=== PATIENT | male | born 1945 | race Caucasian/White ===

== ENCOUNTER 2020-02-01 09:30 | Outpatient (RCR) | payer MEDICARE, SELFPAY ==
[2019-11-08 10:48] VITALS: PULSE 52
[2019-11-08 11:31] VITALS: BP 148/82; PULSE 52; RESP 14; TEMP 37.2; O2SAT 97
--- NOTE | 2019-12-28 09:49 | PCCPR ---
Absent-not sleeping well due to tooth pain. Is hoping to get into the dentist today or get started on some antibiotics. Will keep us posted if he'll be here tomorrow.
--- NOTE | 2020-01-02 08:13 | PCCPR ---
Lai absent this week due to Shingles.
== END 2020-02-01 10:54 | disposition home or self-care (01) ==
LOC: ANHCPREHAB 09:30
PROVIDERS: PCP Family Medicine; Visit Provider Specialist
DX: Z95.1 Presence of aortocoronary bypass graft (principal)
CPT/HCPCS: 93798

== ENCOUNTER 2022-01-01 17:18 | Emergency (ER) | payer MEDICARE, SELFPAY ==
--- NOTE | 2022-01-01 17:22 | ED.SKABFB ---
HPI - Skin/Abscess/Foreign Bdy General Chief complaint: Skin/Abscess/Foreign Body Stated complaint: rash Time Seen by Provider: 01/01/22 17:23 Source: patient and RN notes reviewed History of Present Illness HPI narrative: Patient is a 76-year-old male who presents the urgent care with complaints of a rash to the sides of the face and forehead. Patient states that he was outside doing yard work last night and came in with itchy eyes. Patient states he was wearing gloves that he typically does yard work and is unsure if he came into contact with poison greg. Patient states that the itchy eyes improved slightly. Denies any use of [id number] medication. No other acute distress noted. Patient aware of the plan of care. Some parts of this dictation were generated by voice recognition software and may contain typographical and/or grammatical inaccuracies. Related Data Home Medications Medication Instructions Recorded Confirmed aspirin 81 mg tablet,delayed 81 mg PO DAILY 05/13/19 01/01/22 release atorvastatin 20 mg tablet 20 mg PO DAILY 05/13/19 01/01/22 fluticasone propionate 50 1 spray intranasal DAILY 05/13/19 01/01/22 mcg/actuation nasal spray,suspension (Flonase Allergy Relief) metoprolol tartrate 25 mg tablet 25 mg PO BID 10/26/19 01/01/22 lisinopril 10 mg tablet 10 mg PO DAILY 11/17/19 01/01/22 Allergies Allergy/AdvReac Type Severity Reaction Status Date / Time carbamazepine Allergy Severe Blurred Verified 12/18/21 14:21 vision naproxen AdvReac Unknown Nausea and Verified 12/18/21 14:21 Vomiting Review of Systems Review of Systems: CONSTITUTIONAL: Denies fever, chills, or sweats. EYES: Denies visual changes, redness, or discharge. ENT: Denies rhinorrhea, congestion, sore throat, or otalgia. CARDIOVASCULAR: Denies chest pain, palpitations, or edema. RESPIRATORY: Denies cough or dyspnea. GASTROINTESTINAL: Denies abdominal pain, nausea, vomiting, or diarrhea. GENITOURINARY: Denies dysuria or hematuria. SKIN: Reports of a rash to each side of the face and forehead MUSCULOSKELETAL: Denies back pain, joint pain, or myalgia. NEUROLOGIC: Denies headache, numbness, or weakness. All other systems reviewed are negative, except as documented in HPI. [facility] Past Medical History Medical History (Updated 01/01/22 @ 17:43 by BRITTNEY Joans) Anxiety Benign colon polyp CAD in [place] artery Chronic low back pain COPD (chronic obstructive pulmonary disease) PFTs in April 2017 demonstrated moderate obstructive ventilatory defect with acute bronchodilator response. COPD with asthma Coronary artery disease Cardiac catheterization in May [address] Perez, done for evaluation of abnormal stress test, should coronary artery disease with 100% chronic total occlusion of the right coronary artery with, and moderate stenosis of a diagonal as well as the distal circumflex. Treated with aggressive medical management. 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 No adjuvant therapy. Surgical History Surgical History History of ankle surgery (~1989) 1989 - Left ankle ORIF with hardware. History of coronary artery bypass graft (~05/2019) History of inguinal herniorrhaphy 1989 right inguinal hernia repair Status post appendectomy 1959 - Secondary to ruptured appendicitis. Status post radical unilateral orchiectomy 1989 Right-sided orchiectomy with radical lymph node dissection, at the age of 47 for immature teratoma. Status post surgical removal of malignant neoplasm of skin Basal c
[2022-01-01 17:27] VITALS: BP 140/80; PULSE 56; RESP 16; TEMP 36.9; O2SAT 99
== END 2022-01-01 17:56 | disposition home or self-care (01) ==
PROVIDERS: Emergency Provider Nurse Practitioner Family; PCP Family Medicine
DX: L23.7 Allergic contact dermatitis due to plants, except food (principal); I25.10 Atherosclerotic heart disease of native coronary artery without angina pectoris; J44.9 Chronic obstructive pulmonary disease, unspecified; E78.5 Hyperlipidemia, unspecified; I10 Essential (primary) hypertension; K21.9 Gastro-esophageal reflux disease without esophagitis; M19.90 Unspecified osteoarthritis, unspecified site; Z85.47 Personal history of malignant neoplasm of testis; Z85.828 Personal history of other malignant neoplasm of skin; Z90.79 Acquired absence of other genital organ(s); Z87.891 Personal history of nicotine dependence
CPT/HCPCS: 99213; G0463

== ENCOUNTER → 2022-05-20 10:33 | Outpatient (CLI) | payer MEDICARE, SELFPAY ==
--- NOTE | ~2022-05-20 | XR_ITS ---
XR lumbar spine min 4V DATE: 05/20/2022 10:55 INDICATION: Low back pain TECHNIQUE: AP, bilateral oblique, lateral and coned lateral lumbosacral views COMPARISON: 12/27/2008 lumbar spine FINDINGS: There is degenerative change at the apophyseal joints at the mid and lower lumbar and lumbo sacral area with associated grade 1 anterolisthesis at L4-5. There is moderate degenerative disc disease L4-5 and severe degenerative disc disease at L5-S1. No fracture or bone destruction, spondylolysis. The sacroiliac joints are intact. Surgical clips overlie the upper and lower abdomen. There is a very prominent amount of fecal material in the right colon. IMPRESSION: Degenerative changes Very prominent amount of fecal material in the right colon Reviewed, dictated and finalized at location L. 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
== END ==
PROVIDERS: PCP Family Medicine; Visit Provider Family Medicine
DX: G89.29 Other chronic pain (principal); M54.50 Low back pain, unspecified
CPT/HCPCS: 72110

== ENCOUNTER → 2022-06-06 09:40 | Outpatient (CLI) | payer MEDICARE, SELFPAY ==
--- NOTE | ~2022-06-06 | MR_ITS ---
MRI of the lumbar spine Clinical History: Back pain Technique: Axial T2-weighted images, and sagittal T1-weighted, T2-weighted, and T2 fat-sat images wer e acquired. Findings: No fracture identified. Minimal grade 1 anterolisthesis of L4 over L5 noted. Grade 1 retrol isthesis of L5 over S1 noted. No suspicious bone marrow signal abnormality identified. At L1-L2, there is no disc bulge or herniation. There is facet arthropathy. No spinal canal stenosis or neural foraminal narrowing. At L2-L3, there is no disc bulge or herniation. There is advanced facet arthropathy. No spinal canal stenosis or neural foraminal narrowing. At L3-L4, there is mild disc bulge and facet arthropathy, which contribute to moderate to severe thec al sac compression. Bilateral neural foramina are preserved. At L4-L5, there is a disc extrusion extending superiorly behind the L4 vertebral body. There is sever e facet arthropathy. These factors contribute to severe thecal sac compression as well as severe late ral recess stenosis bilaterally. There is mild left neural foraminal narrowing. Right neural foramen preserved. At L5-S1, disc bulge and severe facet arthropathy are present. No spinal canal stenosis. There is mil d to moderate bilateral neural foraminal narrowing. Impression: Disc extrusion at the L4-L5 level extending superiorly behind the L4 vertebral body. This can without degenerative factors, contributes to severe thecal sac compression and spinal canal stenosis at this level, with mild left neural foraminal narrowing. Multifactorial moderate to severe thecal sac compression L3-L4. Bilateral neural foraminal narrowing at L5-S1. Grade 1 retrolisthesis of L5 over S1. Minimal grade 1 anterolisthesis of L4 over L5. Reviewed, dictated and finalized at [facility]. 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 This can without degenerative factors, contributes to severe thecal sac c ompression and spinal canal stenosis at this level, with mild left neural carlos manuel inal narrowing. Multifactorial moderate to severe thecal sac compression L3-L4. Bilateral neural foraminal narrowing at L5-S1. Grade 1 retrolisthesis of L5 over S1. Minimal grade 1 anterolisthesis of L4 over L5.
== END ==
PROVIDERS: PCP Family Medicine; Visit Provider Family Medicine
DX: M51.26 Other intervertebral disc displacement, lumbar region (principal); M54.30 Sciatica, unspecified side; G95.20 Unspecified cord compression
CPT/HCPCS: 72148

== ENCOUNTER 2022-09-30 13:27 | Outpatient (CLI) | payer MEDICARE, SELFPAY ==
[2022-09-30 14:28] LABS: Potassium 4.5 mmol/L (3.4-5.0)
[2022-09-30 14:32] LABS: Alanine Aminotransferase 22 U/L (6-50); Albumin Level 4.1 g/dL (3.5-5.1); Alkaline Phosphatase 91 U/L (38-126); Anion Gap 6 mmol/L (8-16); Aspartate Amino Transferase 36 U/L (17-59); Bilirubin,Total 0.7 mg/dL (0.2-1.3); Blood Urea Nitrogen 15 mg/dL (9-20); Calcium 8.3 mg/dL (8.4-10.2); Carbon Dioxide 30 mmol/L (22-30); Chloride 101 mmol/L (98-107); Estimated Glomerular Filt Rate > 60; Glucose 89 mg/dL (65-110); Sodium 137 mmol/L (137-145)
== END 2022-09-30 13:28 | disposition home or self-care (01) ==
LOC: ANHGOSHLAB 13:27
PROVIDERS: PCP Family Medicine; Visit Provider Family Medicine
DX: I10 Essential (primary) hypertension (principal); E78.5 Hyperlipidemia, unspecified
CPT/HCPCS: 36415; 80053

== ENCOUNTER 2022-11-21 00:32 | Day surgery (SDC) | payer MEDICARE, SELFPAY ==
[2022-11-17 08:49] VITALS: BMI 28.3
--- NOTE | 2022-11-21 07:43 | WPDANESEPPF ---
Anes - Initial Pre Proc Eval Procedure: Operation Date: 11/21/22 09:30 Proposed Procedures p Colonoscopy - Amol Dugan MD Date/Time: 11/21/22 07:43 Surgeon: Amol Dugan MD Pre Op Diagnosis: hx colon polyps Patient Data Age: 76 Gender: M Height: 1.75 m Weight: 87 kg Allergies Allergy/AdvReac Type Severity Reaction Status Date / Time carbamazepine Allergy Severe Blurred Verified 11/21/22 08:41 vision naproxen AdvReac Unknown Nausea and Verified 11/21/22 08:41 Vomiting Home Medications Medication Instructions Recorded Confirmed Type aspirin 81 mg tablet,delayed 81 mg PO DAILY 05/13/19 11/17/22 History release fluticasone propionate 50 1 spray intranasal PRN PRN 05/13/19 11/17/22 History mcg/actuation nasal Allergies spray,suspension (Flonase Allergy Relief) lisinopril 10 mg tablet 10 mg PO DAILY 11/17/19 11/21/22 History sildenafil 100 mg tablet 100 mg PO DAILY PRN sexual 01/14/21 11/17/22 Rx activity #10 tabs albuterol sulfate 90 mcg/actuation 1 puff inhalation Q4H PRN SOB 04/01/22 11/17/22 History aerosol inhaler atorvastatin 20 mg tablet 20 mg PO QHS 04/01/22 11/17/22 History metoprolol tartrate 50 mg tablet 50 mg PO BID 04/01/22 11/21/22 History fluticasone furoate 100 1 inh inhalation DAILY #180 ea 04/16/22 11/17/22 Rx mcg-vilanterol 25 mcg/dose inhalation powder (Breo Ellipta) cetirizine 10 mg tablet (Zyrtec) 10 mg PO DAILY PRN Allergies 05/20/22 11/17/22 History cholecalciferol (vitamin D3) 25 25 mcg PO DAILY 05/20/22 11/17/22 History mcg (1,000 unit) capsule alprazolam 1 mg tablet 1 mg PO DAILY PRN anxiety #90 tabs 05/27/22 11/17/22 Rx pregabalin 100 mg capsule 100 mg PO BID-TID PRN shingles 07/29/22 11/17/22 Rx pain #270 caps omeprazole 20 mg capsule,delayed 20 mg PO DAILY #90 caps 09/01/22 11/17/22 Rx release tramadol 50 mg tablet 50 mg PO BID PRN pain #60 tabs 10/29/22 11/17/22 Rx melatonin 2.5 mg chewable tablet 2.5 mg PO HS PRN Sleep 11/17/22 11/17/22 History Patient hx anesthesia problems: none Family hx anesthesia problems: none Results Review: All pre-operative results and documents have been reviewed as part of the pre-operative evaluation. [facility] Past Medical History Medical History Anxiety Benign colon polyp CAD in [place] artery Chronic low back pain COPD (chronic obstructive pulmonary disease) PFTs in April 2017 demonstrated moderate obstructive ventilatory defect with acute bronchodilator response. COPD with asthma Coronary artery disease Cardiac catheterization in May [address] Perez, done for evaluation of abnormal stress test, should coronary artery disease with 100% chronic total occlusion of the right coronary artery with, and moderate stenosis of a diagonal as well as the distal circumflex. Treated with aggressive medical management. 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 No adjuvant therapy. Vitamin D deficiency Surgical History Surgical History History of ankle surgery (~1989) 1989 - Left ankle ORIF with hardware. History of basal cell carcinoma (BCC) excision (~2022) Back History of coronary artery bypass graft (~05/2019) History of inguinal herniorrhaphy (~1989) 1989 right inguinal hernia repair Status post appendectomy (~1959) 1960 - Secondary to ruptured appendicitis. Status post radical unilateral orchiectomy 1989 Right-sided orchiectomy with radical lymph node dissec
[2022-11-21 08:44] VITALS: BP 119/66; PULSE 62; RESP 20; TEMP 36.3; O2SAT 95
[2022-11-21] MEDS: LACTATED RINGERS 1,000 ML 150 ML IV CONT (08:56)
--- NOTE | 2022-11-21 09:18 | PM.HPGS ---
History of Present Illness History of Present Illness Consent: Risks, benefits, and alternatives have been discussed and questions answered. Patient agrees to proceed with procedure. Chief complaint: neoplasia screening Narrative: Milton Arreola is a 76 year old male Presents for screening colonoscopy. Patient reports his weight appetite are normal. He occasionally has bouts constipation. Colonoscopy 5 years ago revealed a diminutive polyp that was removed but no histology obtain because of fulguration. Patient has a history of testicular carcinoma. He had lymph node removal prophylactically. He reports his stools are somewhat sluggish on occasion. Patient denies any bleeding or weight loss. Family history noncontributory. Review of Systems Review of Systems: Review of systems noncontributory. [facility] Past Medical History Medical History Anxiety Benign colon polyp CAD in [place] artery Chronic low back pain COPD (chronic obstructive pulmonary disease) PFTs in April 2017 demonstrated moderate obstructive ventilatory defect with acute bronchodilator response. COPD with asthma Coronary artery disease Cardiac catheterization in May [address] Perez, done for evaluation of abnormal stress test, should coronary artery disease with 100% chronic total occlusion of the right coronary artery with, and moderate stenosis of a diagonal as well as the distal circumflex. Treated with aggressive medical management. 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 No adjuvant therapy. Vitamin D deficiency Surgical History Surgical History History of ankle surgery (~1989) 1989 - Left ankle ORIF with hardware. History of basal cell carcinoma (BCC) excision (~2022) Back History of coronary artery bypass graft (~05/2019) History of inguinal herniorrhaphy (~1989) 1989 right inguinal hernia repair Status post appendectomy (~1959) 1960 - Secondary to ruptured appendicitis. Status post radical unilateral orchiectomy 1989 Right-sided orchiectomy with radical lymph node dissection, at the age of 47 for immature teratoma. Status post surgical removal of malignant neoplasm of skin (~2019) Basal cell carcinoma excised from the nose. Family History Family History Mother Breast cancer Hypertension Father Family history of coronary artery disease Cerebrovascular accident Hypertension Social History Social History Social History: The patient lives in [place] with his . He designates his , Eryn, as his surrogate decision maker and he wishes to be a full code. The patient smoked about half a pack of cigarettes per day and quit in 2013. He denies alcohol and drug abuse. Years smoked: 30 Smoking status: Former smoker Tobacco type: cigarettes Smoking end date: 05/04/99 Alcohol intake: never Substance use: never Substance use type: does not use Lack of Transportation: No Lack of Food: Never True Current Housing: I Have Housing Concerned About Future Housing: No Difficulty Paying Gas/Electric Bills: No Difficulty Paying for Meds: No Currently Unemployed: No Education: Associate Degree Living arrangements: with family Additional living arrangements comments: Occupation/Education: occupation Additional occupation/education comments: [employer]
[2022-11-21 09:48] VITALS: BP 86/49; PULSE 70; RESP 25; O2SAT 100
[2022-11-21 09:58] VITALS: BP 103/69; PULSE 68; RESP 22; O2SAT 100
[2022-11-21 10:08] VITALS: BP 108/64; PULSE 70; RESP 22; O2SAT 100
== END 2022-11-21 10:10 | disposition home or self-care (01) ==
PROVIDERS: PCP Family Medicine; Visit Provider Internal Medicine Gastroenterology
PROC: 0DJD8ZZ Inspection of Lower Intestinal Tract, Via Natural or Artificial Opening Endoscopic (ICD-10-PCS; CPT 45378; principal; 2022-11-21 09:30)
DX: Z12.11 Encounter for screening for malignant neoplasm of colon (principal); D12.2 Benign neoplasm of ascending colon; K64.8 Other hemorrhoids; I25.10 Atherosclerotic heart disease of native coronary artery without angina pectoris; J44.9 Chronic obstructive pulmonary disease, unspecified; I10 Essential (primary) hypertension; K21.9 Gastro-esophageal reflux disease without esophagitis; E78.5 Hyperlipidemia, unspecified; F41.9 Anxiety disorder, unspecified; E55.9 Vitamin D deficiency, unspecified; Z85.47 Personal history of malignant neoplasm of testis; Z87.891 Personal history of nicotine dependence; Z79.82 Long term (current) use of aspirin; Z79.51 Long term (current) use of inhaled steroids
CPT/HCPCS: 45380; 88305; J2704; J7120

== ENCOUNTER → 2023-04-06 13:49 | Outpatient (CLI) | payer MEDICARE, SELFPAY ==
--- NOTE | ~2023-04-06 | XR_ITS ---
EXAMINATION: XR foot LT min 3V DATE: 04/06/2023 14:01 INDICATION: Left foot pain. TECHNIQUE: 4 views of left foot were obtained. COMPARISON: None. FINDINGS: There is a fracture of medial aspect of base of first proximal phalanx with 2 mm distractio n. There is a nondisplaced fracture of plantar base of second proximal phalanx. There is plate and sc rew fixation of distal fibula and screw fixation of medial malleolus. There is mild osteoarthritis of first interphalangeal joint and first metatarsophalangeal joint and talonavicular joint. There are e nthesophytes at the posterior and plantar aspects of calcaneal tuberosity. IMPRESSION: 1. Fractures of the bases of first and second proximal phalanges. Reviewed, dictated and finalized at location E. OPERATOR
== END ==
PROVIDERS: PCP Family Medicine; Visit Provider Nurse Practitioner Family
DX: S92.412A Displaced fracture of proximal phalanx of left great toe, initial encounter for closed fracture (principal); S92.512A Displaced fracture of proximal phalanx of left lesser toe(s), initial encounter for closed fracture
CPT/HCPCS: 73630

== ENCOUNTER 2023-11-25 11:43 | Emergency (ER) | payer MEDICARE, SELFPAY ==
--- NOTE | ~2023-11-25 | XR_ITS ---
EXAMINATION: XR chest 2V 11/25/2023 12:18 INDICATION: Cough for one month. Decreased oxygen saturations PROCEDURE: 2 view chest COMPARISON: Comparison to multiple prior studies sequentially, with oldest reviewed study dated 02/02. FINDINGS: The lungs are clear. The cardiomediastinal silhouette is within normal limits. There are no pleural effusions. There is no pneumothorax suspected. There is evidence for chronic granulomato us disease. There are residual epicardial pacing leads. IMPRESSION: 1: NO ACUTE CARDIOPULMONARY DISEASE. Reviewed, dictated and finalized at location B.
[2023-11-25 11:52] VITALS: BP 121/58; PULSE 58; RESP 16; TEMP 37; O2SAT 96
--- NOTE | 2023-11-25 11:55 | ED.URI ---
HPI - URI/Sore Throat General Chief Complaint: Upper Respiratory Infection Stated Complaint: COUGH/COUGH Time Seen by Provider: 11/25/23 12:00 Source: patient and RN notes reviewed Mode of arrival: ambulatory Limitations: no limitations History of Present Illness HPI Narrative: 77-year-old male with history of COPD with asthma presents with concern for cough for 4 days. Reports he has been using his inhaler without relief, he last used this morning. He reports he can feel ?rumbling? in his chest. Denies shortness breath. MD elicited complaint: cough Related Data Home Medications Medication Instructions Recorded Confirmed aspirin 81 mg tablet,delayed 81 mg PO DAILY 05/13/19 11/25/23 release fluticasone propionate 50 1 spray intranasal PRN PRN 05/13/19 11/25/23 mcg/actuation nasal Allergies spray,suspension (Flonase Allergy Relief) lisinopril 10 mg tablet 10 mg PO DAILY 11/17/19 11/25/23 metoprolol tartrate 50 mg tablet 50 mg PO BID 04/01/22 11/25/23 cetirizine 10 mg tablet (Zyrtec) 10 mg PO DAILY PRN Allergies 05/20/22 11/25/23 melatonin 2.5 mg chewable tablet 2.5 mg PO HS PRN Sleep 11/17/22 11/25/23 cholecalciferol (vitamin D3) 50 50 mcg PO DAILY 04/14/23 11/25/23 mcg (2,000 unit) tablet Allergies Allergy/AdvReac Type Severity Reaction Status Date / Time carbamazepine Allergy Severe Blurred Verified 11/25/23 12:06 vision naproxen AdvReac Unknown Nausea and Verified 11/25/23 12:06 Vomiting Review of Systems Review of Systems: CONSTITUTIONAL: Denies malaise, chills, sweats, or fever. EYES: Denies visual changes, redness, or discharge. ENT: Denies rhinorrhea, congestion, sinus pain, otalgia and sore throat. CARDIOVASCULAR: Denies chest pain, palpitations, or edema. RESPIRATORY: Reports cough. Denies dyspnea. GASTROINTESTINAL: Denies abdominal pain, nausea, vomiting, diarrhea SKIN: Denies rash or itching. MUSCULOSKELETAL: Denies myalgia. NEUROLOGIC: Denies headache. All systems reviewed & are unremarkable except as noted in HPI and below PMFSH Past Medical History Medical History Anxiety Benign colon polyp CAD in [place] artery Chronic low back pain COPD (chronic obstructive pulmonary disease) PFTs in April 2017 demonstrated moderate obstructive ventilatory defect with acute bronchodilator response. COPD with asthma Coronary artery disease Cardiac catheterization in May [address] Perez, done for evaluation of abnormal stress test, should coronary artery disease with 100% chronic total occlusion of the right coronary artery with, and moderate stenosis of a diagonal as well as the distal circumflex. Treated with aggressive medical management. 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 No adjuvant therapy. Vitamin D deficiency Surgical History Surgical History History of ankle surgery (~1989) 1989 - Left ankle ORIF with hardware. History of basal cell carcinoma (BCC) excision (~2022) Back History of coronary artery bypass graft (~05/2019) History of inguinal herniorrhaphy (~1989) 1989 right inguinal hernia repair Status post appendectomy (~1959) 1960 - Secondary to ruptured appendicitis. Status post radical unilateral orchiectomy 1989 Right-sided orchiectomy with radical lymph node dissection, at the age of 47 for immature teratoma. Status post surgical removal of malignant neoplasm of skin (~2018) Basal cell carcinoma excised from the nose. Family Hist
== END 2023-11-25 12:38 | disposition home or self-care (01) ==
PROVIDERS: Emergency Provider Nurse Practitioner; PCP Family Medicine
DX: J44.1 Chronic obstructive pulmonary disease with (acute) exacerbation (principal); Z87.891 Personal history of nicotine dependence; I25.10 Atherosclerotic heart disease of native coronary artery without angina pectoris; J44.9 Chronic obstructive pulmonary disease, unspecified; M47.816 Spondylosis without myelopathy or radiculopathy, lumbar region; M19.90 Unspecified osteoarthritis, unspecified site; E55.9 Vitamin D deficiency, unspecified; Z85.47 Personal history of malignant neoplasm of testis; Z85.828 Personal history of other malignant neoplasm of skin; Z95.1 Presence of aortocoronary bypass graft
CPT/HCPCS: 71046; 99213; G0463

== ENCOUNTER 2024-01-01 09:04 | Outpatient (CLI) | payer MEDICARE, SELFPAY ==
--- NOTE | ~2024-01-01 | CT_ITS ---
CT Scan of the Chest without Contrast: Clinical Indication: Lung cancer screening, nicotine dependence Technique: Contiguous sections were acquired throughout the chest without intravenous contrast. Dose reduction technique was used on this scan by utilizing automated exposure control and iterative recon struction technique. The dose-length product (DLP) was 129.00 mGy-cm. Findings: There is no evidence of any significant mediastinal, hilar or axillary lymphadenopathy. Multiple calc ified mediastinal lymph nodes are present. Coronary artery calcifications are present. There is no evidence of pleural or pericardial effusion. There are focal areas of tree-in-bud opacities in the right upper lobe. There is minimal bibasilar sc arring or atelectasis. Images through the upper abdomen reveal no abnormalities. Impression: Less 2: Benign appearance. 12 month follow-up screening CT advised. Focal area of tree-in-bud opacities in the right upper lobe, compatible with small airways infectious process. Reviewed, dictated and finalized at [facility]. Impression: Less 2: Benign appearance. 12 month follow-up screening CT advised. Focal area of tree-in-bud opacities in the right upper lobe, compatible with sm all airways infectious process.
--- NOTE | ~2024-01-01 | US_ITS ---
EXAMINATION: US aorta [facility] scrn DATE: 01/01/2024 09:41 INDICATION: Abdominal aortic aneurysm screening. Risk factors of hypertension, hypercholesterolemia a nd prior smoking TECHNIQUE: Grayscale, color Doppler, and pulsed Doppler images of the aorta and common iliac arteries were obtained. COMPARISON: None. FINDINGS: The proximal aorta measures 2.8 cm AP diameter. The mid aorta measures 1.8 cm. The distal aorta measu res 2.4 cm. The right common iliac artery measures 1.5 cm. The left common iliac artery measures 1.6 cm. IMPRESSION: 1. Normal caliber abdominal aorta. Reviewed, dictated and finalized at location A.
== END 2024-01-01 09:05 | disposition home or self-care (01) ==
PROVIDERS: PCP Family Medicine; Visit Provider Family Medicine
DX: Z12.2 Encounter for screening for malignant neoplasm of respiratory organs (principal); Z87.891 Personal history of nicotine dependence; Z13.6 Encounter for screening for cardiovascular disorders
CPT/HCPCS: 71271; 76706

== ENCOUNTER 2024-04-11 16:55 | Inpatient (IN) | payer MEDICARE, SELFPAY ==
--- NOTE | ~2024-04-11 | XR_ITS ---
EXAMINATION: XR sm bowel follow through [facility] DATE: 04/12/2024 16:30 INDICATION: Small bowel obstruction TECHNIQUE: Commodities Manager radiograph(s) of the abdomen was/were obtained. Oral contrast was administered, and sequential radiographs of the abdomen were obtained until oral contrast was noted to be in the proxi mal colon. COMPARISON: CT dated 04/21/2024 FINDINGS: Commodities Manager image demonstrates multiple surgical clips in the mid abdomen. Moderate amount of stool in the proximal colon and moderate amount of gas in the more distal colon. There is also a mildly dilated ga s-filled loop of small bowel in the central abdomen. On the 15 minute image the ingested contrast rem ains in the stomach with reflux of some contrast into the mid to distal esophagus. There calcified ly mph nodes at the left hilar region consistent with old granulomatous disease. Median sternotomy wires and mediastinal surgical clips are seen, likely from prior coronary artery bypass grafting. Also ret ained epicardial pacemaker leads. Transit time from the stomach to proximal colon was approximately 3 hours. There is persistent minima l to mild dilation of the proximal to mid small bowel with persistent transition point in the right l ower quadrant with contrast opacified but with relatively decompressed loops of distal ileum in the r ight lower quadrant. IMPRESSION: 1. Mildly delayed small bowel transit time of 2-3 hours with transition point from minimal to mildly dilated small bowel to relatively decompressed bowel in the right lower quadrant. Findings are consis tent with a persistent likely partial small bowel obstruction. Reviewed, dictated and finalized at location A. [facility] M[facility] IMPRESSION: 1. Mildly delayed small bowel transit time of 2-3 hours with transition point f rom minimal to mildly dilated small bowel to relatively decompressed bowel in t he right lower quadrant. Findings are consistent with a persistent likely parti al small bowel obstruction.
--- NOTE | ~2024-04-11 | CT_ITS ---
EXAMINATION: CT abdomen pelvis w con DATE: 04/11/2024 21:45 INDICATION: abd pain, vomiting, hx of bowel obstructions TECHNIQUE: Computed tomography (CT) of the abdomen and pelvis was performed with 100 mL Omnipaque-350 intravenous contrast. Automated exposure control and iterative reconstruction technique were employe d. The dose-length product was 715.85 mGy-cm. COMPARISON: 05/13/2019; CT lung screening 01/01/2024. FINDINGS: Lower thorax: Calcified hilar nodes. Coronary artery calcifications. Liver: Normal. Biliary/Gallbladder: Gallbladder is normal. No bile duct dilation. Pancreas: No mass or duct dilation. Spleen: 7 mm cyst or hemangioma. Granulomatous calcifications. Adrenals:No mass. Kidneys: No suspicious mass, obstructing stone, or hydronephrosis. Stable right upper pole AML. Stabl e hyperdense proteinaceous or hemorrhagic left upper pole cyst GI tract: Multiple loops of proximal and mid small bowel. Transition point in the right lower quadran t (coronal image 57). Uniform bowel wall enhancement. No pneumatosis. No large bowel dilation. Append ix not confidently visualized Mesentery/Peritoneum: No ascites, mass, or free air. Retroperitoneum: No mass. Atherosclerotic abdominal aortic and/or arterial calcifications. Bilateral common iliac artery aneurysms measuring 1.7 cm on the left and 2.5 cm on the right. Pelvis: Pelvic organs are within normal limits. Soft Tissues: Small fat-containing uncomplicated umbilical and left inguinal hernias Bones: No acute osseous finding. IMPRESSION: Small bowel obstruction, possibly secondary to adhesions in the right lower quadrant. Reviewed, dictated and finalized at location K. TH PROMOTION OFFICER IMPRESSION: Small bowel obstruction, possibly secondary to adhesions in the right lower katja drant.
[2024-04-11 16:59] VITALS: BP 131/73; PULSE 62; RESP 18; TEMP 36.8; O2SAT 97
[2024-04-11 18:39] VITALS: BP 124/68; PULSE 72; RESP 17; O2SAT 95
--- NOTE | 2024-04-11 18:42 | PC.NURSE ---
Pts states she is leaving to check on her dogs. Requesting the ED to call when he has a room or for any updates. [phone] (Fanny)
[2024-04-11] MEDS: ONDANSETRON INJ 4 MG/2 ML VIAL IV PUSH ×2 (19:56→22:41)
[2024-04-11 19:59] LABS: Basophils Absolute Auto 0.1 K/mm3 (0.0-0.1); Basophils Percent Auto 0.4 % (0.2-1.2); Eosinophils Absolute Auto 0.5 K/mm3 (0-0.3); Eosinophils Percent Auto 2.6 % (0-4.4); Hematocrit 48.6 % (42.0-52.0); Hemoglobin 15.7 g/dL (14.0-18.0); Immature Granulocyte Absolute 0.07 K/mm3 (0.00-0.031); Immature Granulocyte Percent A 0.3 % (0-0.5); Lymphocytes Absolute Auto 2.83 K/mm3 (0.9-3.2); Mean Corpuscular HGB Conc 32.3 g/dl (32-36); Mean Corpuscular Hemoglobin 28.2 pg (26-34); Mean Corpuscular Volume 87.3 fl (80-100); Mean Platelet Volume 9.9 fl (7.4-10.4); Monocytes Absolute Auto 1.9 K/mm3 (0.1-0.6); Monocytes Percent Auto 9.3 % (2.6-8.5); Neutrophils Absolute Auto 14.8 K/mm3 (1.3-6.7); Neutrophils Percent Auto 73.4 % (45.5-73.1); Platelet Count Result 218 k/mm3 (150-375); Red Blood Count 5.57 M/mm3 (4.6-6.20); Red Cell Distribution Width 14.7 % (11.5-14.5); White Blood Count 20.2 K/mm3 (4.5-10.0)
[2024-04-11 20:46] LABS: Lactic Acid Reflex 3.2 mmol/L (0.7-2.0)
[2024-04-11 21:06] LABS: Alanine Aminotransferase 29 U/L (6-50); Albumin Level 4.5 g/dL (3.5-5.1); Alkaline Phosphatase 128 U/L (38-126); Anion Gap 8 mmol/L (4-12); Aspartate Amino Transferase 33 U/L (17-59); Blood Urea Nitrogen 15 mg/dL (9-20); Calcium 9.4 mg/dL (8.4-10.2); Carbon Dioxide 28 mmol/L (22-30); Chloride 101 mmol/L (98-107); Estimated CRCL calculation 55 ml/min; Estimated Glomerular Filt Rate > 60; Glucose 133 mg/dL (65-110); Lipase 98 U/L (23-300); Potassium 4.1 mmol/L (3.4-5.0); Sodium 137 mmol/L (137-145)
--- NOTE | 2024-04-11 22:33 | ED_ITS ---
HPI - Abdominal Pain General Chief Complaint: Abdominal Pain <ELVIRA Umanzor Last Filed: 04/11/24 23:30> Stated Complaint: concerned about SBO <ELVIRA Umanzor Last Filed: 04/11/24 23:30> Time Seen by Provider: 04/11/24 21:26 <ELVIRA Umanzor Last Filed: 04/11/24 23:30> Source: patient <ELVIRA Umanzor Last Filed: 04/11/24 23:30> Mode of arrival: ambulatory <ELVIRA Umanzor Last Filed: 04/11/24 23:30> Limitations: no limitations <ELVIRA Umanzor Last Filed: 04/11/24 23:30> History of Present Illness HPI narrative: Patient is a 78-year-old male who presents the ED with report of abdominal pain. Patient reports he developed pain diffusely throughout his abdomen, worse throughout right side this morning. He began having nausea and vomiting, increased belching. Patient has history of several previous small-bowel obstructions. Thought to be related to previous abdominal surgeries. History of appendectomy, inguinal hernia repair, radical lymph node dissection from the abdomen related to testicular cancer. States symptoms feel similar to previous small bowel obstruction. Patient had a small hard bowel movement this morning. Last bowel movement prior was 2 days ago. Denies fevers. <ELVIRA Umanzor Last Filed: 04/11/24 23:30> Related Data Home Medications: Home Medications ?Medication ?Instructions ?Recorded ?Confirmed ?Last Taken ?Type aspirin 81 mg tablet,delayed 81 mg PO DAILY 05/13/19 04/12/24 04/11/24 History release fluticasone propionate 50 1 spray intranasal DAILY Allergies 05/13/19 04/12/24 Unknown History mcg/actuation nasal spray,suspension (Flonase Allergy Relief) lisinopril 10 mg tablet 10 mg PO DAILY 11/17/19 04/12/24 04/11/24 History metoprolol tartrate 50 mg tablet 50 mg PO BID 04/01/22 04/12/24 04/11/24 08:00 History cetirizine 10 mg tablet (Zyrtec) 10 mg PO DAILY PRN Allergies 05/20/22 04/12/24 Unknown History melatonin 2.5 mg chewable tablet 10 mg PO HS PRN Sleep 11/17/22 04/12/24 Unknown History cholecalciferol (vitamin D3) 50 50 mcg PO DAILY 04/14/23 04/12/24 04/11/24 History mcg (2,000 unit) tablet <Kareen Roth PA-C - Last Filed: 04/11/24 23:30> Allergies/Adverse Reactions: Allergies Allergy/AdvReac Type Severity Reaction Status Date / Time carbamazepine Allergy Severe Blurred Verified 12/15/23 16:22 vision naproxen AdvReac Unknown Nausea and Verified 12/15/23 16:22 Vomiting <Kareen Roth PA-C - Last Filed: 04/11/24 23:30> Review of Systems 2 Review of Systems: All systems reviewed & are unremarkable except as noted in HPI. <Kareen Roth PA-C - Last Filed: 04/11/24 23:30> All systems reviewed & are unremarkable except as noted in HPI and below < Kareen Roth PA-C - Last Filed: 04/11/24 23:30> [facility] Past Medical History Medical History: Medical History Vitamin D deficiency Degenerative joint disease (DJD) of lumbar spine Erectile dysfunction History of shingles (~01/2020) Herpes zoster virus infection of face and ear nerves (~01/2020) COPD with asthma Dyslipidemia Recurrent epistaxis CAD in [place] artery Environmental allergies Essential (primary) hypertension COPD (chronic obstructive pulmonary disease) PFTs in April 2017 demonstrated moderate obstructive ventilatory defect with acute bronchodilator response. Benign colon polyp Chronic low back pain Anxiety Osteoarthritis GERD (gastroesophageal reflux disease) Irritable bowel syndrome Coronary artery disease Cardiac catheterization in May [address] Perez, done for evaluation of abnormal stress test, should coronary artery disease with 100% chronic total occlusion of the right coronary artery with, and moderate stenosis of a diagonal as well as the distal circumflex. Treated with aggressive medical management. 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 No adjuvant therapy. Small bowel obstruction 05/2019 <Kareen Roth PA-C - Last Filed: 04/11/24 23:30> Surgical History Surgical History: Surgical History History of basal cell carcinoma (BCC) excision (~2022) Back History of coronary artery bypass graft (~05/2019) Status post radical unilateral orchiectomy 1989 Right-sided orchiectomy with radical lymph node dissection, at the age of 47 for immature teratoma. History of inguinal herniorrhaphy (~1989) 1989 right inguinal hernia repair Status post appendectomy (~1959) 1959 - Secondary to ruptured appendicitis. History of ankle surgery (~1989) 1989 - Left ankle ORIF with hardware. Status post surgical removal of malignant neoplasm of skin (~2018) Basal cell carcinoma excised from the nose. <Kareen Roth PA-C - Last Filed: 04/11/24 23:30> Family History Family History: Family History Mother Breast cancer Hypertension Father Family history of coronary artery disease Cerebrovascular accident Hypertension <ELVIRA Umanzor Last Filed: 04/11/24 23:30> Social History Social History: Social History Social History: The patient lives in [place] with his . He designates his , Eryn, as his surrogate decision maker and he wishes to be a full code. The patient smoked about half a pack of cigarettes per day and quit in 2013. He denies alcohol and drug abuse. Years smoked: 30 Smoking status: Former smoker Tobacco type: cigarettes Smoking end date: 05/04/08 Alcohol intake: never Substance use: never Substance use type: does not use Do You Feel Safe in your Home?: Yes Lack of Transportation: No Lack of Food: Never True Current Housing: I Have Housing Concerned About Future Housing: No Difficulty Paying Gas/Electric Bills: No Difficulty Paying for Meds: No Currently Unemployed: No Education: Associate Degree Difficulty w/ Childcare or Family Care: No Living arrangements: with family Additional living arrangements comments: Occupation/Education: occupation Additional occupation/education comments: [employer] Gender identity (if verbalized by the patient): Male Sexual Orientation (if Verbalized by the Patient): Straight or Heterosexual Spiritual care concerns: No Agree to blood products: Yes <Kareen Roth PA-C - Last Filed: 04/11/24 23:30> Exam 2 Narrative: GENERAL: Elderly but well appearing, well-nourished, non-toxic, in no acute distress. HEAD: Normocephalic, atraumatic. RESPIRATORY: Airway patent, respirations nonlabored. Clear to auscultation bilaterally, no rales, rhonchi, wheezing. CARDIOVASCULAR: Regular rate and rhythm without murmurs, rubs, or gallops. ABDOMINAL: Abdomen is slightly distended, but is still soft. Diffusely tender throughout right-sided abdomen. No rebound. Slightly hypoactive BS. MUSCULOSKELETAL: Moves all extremities. No gross deformities. SKIN: Warm, dry, normal color. NEURO: A&O X3. Speech clear. No ataxic movements. PSYCHIATRIC: Appropriate mood and affect. Normal interaction. <Kareen Roth PA-C - Last Filed: 04/11/24 23:30> Course [employer]EL INJECTION SERVICER/PA Physician Supervision PA notified me this patient would be admitted for small bowel obstruction. Antibiotics being given due to elevated white count. Confirmed that no electrolyte abnormalities (magnesium to be added on to assess). NG tube will be placed. Surgery has already been consulted and patient will be admitted to the hospitalist. I was available for consultation but did not personally assess this patient. <Sarah Gann MD - Last Filed: 04/12/24 18:08> Vital Signs Vital signs: Vital Signs Temperature 98.2 F 04/11/24 16:59 Pulse Rate 62 04/11/24 16:59 Respiratory Rate 18 04/11/24 16:59 Blood Pressure 131/73 04/11/24 16:59 Pulse Oximetry 97 04/11/24 16:59 Temperature 98.2 F 04/12/24 14:00 Pulse Rate 97 04/12/24 14:00 Respiratory Rate 16 04/12/24 14:00 Blood Pressure 126/67 04/12/24 14:00 Pulse Oximetry 96 04/12/24 14:00 Oxygen Delivery Room Air 04/12/24 08:00 <Kareen Roth PA-C - Last Filed: 04/11/24 23:30> Vital Signs Temperature 98.2 F 04/11/24 16:59 Pulse Rate 62 04/11/24 16:59 Respiratory Rate 18 04/11/24 16:59 Blood Pressure 131/73 04/11/24 16:59 Pulse Oximetry 97 04/11/24 16:59 Temperature 98.2 F 04/12/24 14:00 Pulse Rate 97 04/12/24 14:00 Respiratory Rate 16 04/12/24 14:00 Blood Pressure 126/67 04/12/24 14:00 Pulse Oximetry 96 04/12/24 14:00 Oxygen Delivery Room Air 04/12/24 08:00 <Sarah Gann MD - Last Filed: 04/12/24 18:08> MDM - Abdominal Pain MDM Narrative Medical decision making narrative: Patient presented to ED with abdominal pain, nausea, vomiting, history of previous small-bowel obstruction that feels similar. Vital signs are stable upon arrival. Patient is afebrile. CBC with white blood cell count of 20.2. Neutrophil predominance. No bandemia. CMP is fairly unremarkable. Stable electrolytes. Initial lactic acid is elevated to 3.2. Fluids ongoing. Will continue to trend. CT scan of abdomen/pelvis was obtained and showing SBO with transition point right lower quadrant, likely from adhesions. Consistent with exam and clinical picture. Given profound leukocytosis, will start Zosyn to cover for infectious process. Blood cultures were obtained. Patient given pain and nausea medicine in the ED. Will place NG tube. Discussed case with Dr. Terry, general surgery, agreed w/ plan, will consult. Discussed case with Dr. Jarrett, hospitalist, accepted patient for admission. Patient in agreement with plan and need for admission. <Kareen Roth PA-C - Last Filed: 04/11/24 23:30> Medical Records Attestation: I reviewed the patient's medical records. <Kareen Roth PA-C - Last Filed: 04/11/24 23:30> Lab Data Attestation: I reviewed the patient's lab results. <Kareen Roth PA-C - Last Filed: 04/11/24 23:30> Result diagrams: 04/12/24 06:58 04/12/24 06:58 <Kareen Roth PA-C - Last Filed: 04/11/24 23:30> Labs: Lab Results 04/11/24 04/11/24 Range/Units 19:54 20:27 WBC 20.2 H (4.5-10.0) K/mm3 RBC 5.57 (4.6-6.20) M/mm3 Hgb 15.7 (14.0-18.0) g/dL Hct 48.6 (42.0-52.0) % MCV 87.3 (80-100) fl MCH 28.2 (26-34) pg MCHC 32.3 (32-36) g/dl RDW 14.7 H (11.5-14.5) % Plt Count 218 (150-375) k/mm3 MPV 9.9 (7.4-10.4) fl Immature Gran % (Auto) 0.3 (0-0.5) % Neut % (Auto) 73.4 H (45.5-73.1) % Lymph % (Auto) 14.0 L (18.3-44.2) % [place] % (Auto) 9.3 H (2.6-8.5) % Eos % (Auto) 2.6 (0-4.4) % Baso % (Auto) 0.4 (0.2-1.2) % Lymph # (Auto) 2.83 (0.9-3.2) K/mm3 [place] # (Auto) 1.9 H (0.1-0.6) K/mm3 Eos # (Auto) 0.5 H (0-0.3) K/mm3 Baso # (Auto) 0.1 (0.0-0.1) K/mm3 Abs Immat Gran (auto) 0.07 H (0.00-0.031) K/mm3 Absolute Neuts (auto) 14.8 H (1.3-6.7) K/mm3 Absolute Nucleated RBC 0.000 (0.0-0.012) K/mm3 Nucleated RBC % 0.0 (0.0-0.2) % Sodium 137 (137-145) mmol/L Potassium 4.1 (3.4-5.0) mmol/L Chloride 101 (98-107) mmol/L Carbon Dioxide 28 (22-30) mmol/L Anion Gap 8 (4-12) mmol/L BUN 15 (9-20) mg/dL Creatinine 1.00 (0.7-1.3) mg/dL Estim Creat Clear Calc 55 ml/min Estimated GFR > 60 (59 - ) Glucose 133 H (65-110) mg/dL Lactic Acid 3.2 H (0.7-2.0) mmol/L Calcium 9.4 (8.4-10.2) mg/dL Magnesium 1.9 (1.6-2.3) mg/dL Total Bilirubin 1.0 (0.2-1.3) mg/dL AST 33 (17-59) U/L ALT 29 (6-50) U/L Alkaline Phosphatase 128 H (38-126) U/L Total Protein 8.0 (6.3-8.2) g/dL Albumin 4.5 (3.5-5.1) g/dL Lipase 98 (23-300) U/L <Kareen Roth PA-C - Last Filed: 04/11/24 23:30> Lab Results 04/11/24 04/11/24 Range/Units 19:54 20:27 WBC 20.2 H (4.5-10.0) K/mm3 RBC 5.57 (4.6-6.20) M/mm3 Hgb 15.7 (14.0-18.0) g/dL Hct 48.6 (42.0-52.0) % MCV 87.3 (80-100) fl MCH 28.2 (26-34) pg MCHC 32.3 (32-36) g/dl RDW 14.7 H (11.5-14.5) % Plt Count 218 (150-375) k/mm3 MPV 9.9 (7.4-10.4) fl Immature Gran % (Auto) 0.3 (0-0.5) % Neut % (Auto) 73.4 H (45.5-73.1) % Lymph % (Auto) 14.0 L (18.3-44.2) % [place] % (Auto) 9.3 H (2.6-8.5) % Eos % (Auto) 2.6 (0-4.4) % Baso % (Auto) 0.4 (0.2-1.2) % Lymph # (Auto) 2.83 (0.9-3.2) K/mm3 [place] # (Auto) 1.9 H (0.1-0.6) K/mm3 Eos # (Auto) 0.5 H (0-0.3) K/mm3 Baso # (Auto) 0.1 (0.0-0.1) K/mm3 Abs Immat Gran (auto) 0.07 H (0.00-0.031) K/mm3 Absolute Neuts (auto) 14.8 H (1.3-6.7) K/mm3 Absolute Nucleated RBC 0.000 (0.0-0.012) K/mm3 Nucleated RBC % 0.0 (0.0-0.2) % Sodium 137 (137-145) mmol/L Potassium 4.1 (3.4-5.0) mmol/L Chloride 101 (98-107) mmol/L Carbon Dioxide 28 (22-30) mmol/L Anion Gap 8 (4-12) mmol/L BUN 15 (9-20) mg/dL Creatinine 1.00 (0.7-1.3) mg/dL Estim Creat Clear Calc 55 ml/min Estimated GFR > 60 (59 - ) Glucose 133 H (65-110) mg/dL Lactic Acid 3.2 H (0.7-2.0) mmol/L Calcium 9.4 (8.4-10.2) mg/dL Magnesium 1.9 (1.6-2.3) mg/dL Total Bilirubin 1.0 (0.2-1.3) mg/dL AST 33 (17-59) U/L ALT 29 (6-50) U/L Alkaline Phosphatase 128 H (38-126) U/L Total Protein 8.0 (6.3-8.2) g/dL Albumin 4.5 (3.5-5.1) g/dL Lipase 98 (23-300) U/L <Sarah Gann MD - Last Filed: 04/12/24 18:08> Imaging Data Attestation: I personally reviewed and interpreted this imaging study as follows: < Kareen Roth PA-C - Last Filed: 04/11/24 23:30> Radiologist's impression: ITS Impressions Abdomen/Pelvis CT 04/11/24 22:15 IMPRESSION: Small bowel obstruction, possibly secondary to adhesions in the right lower quadrant. Small Bowel X-Ray 04/12/24 16:36 IMPRESSION: 1. Mildly delayed small bowel transit time of 2-3 hours with transition point from minimal to mildly dilated small bowel to relatively decompressed bowel in the right lower quadrant. Findings are consistent with a persistent likely partial small bowel obstruction. <Kareen Roth PA-C - Last Filed: 04/11/24 23:30> ITS Impressions Abdomen/Pelvis CT 04/11/24 22:15 IMPRESSION: Small bowel obstruction, possibly secondary to adhesions in the right lower quadrant. Small Bowel X-Ray 04/12/24 16:36 IMPRESSION: 1. Mildly delayed small bowel transit time of 2-3 hours with transition point from minimal to mildly dilated small bowel to relatively decompressed bowel in the right lower quadrant. Findings are consistent with a persistent likely partial small bowel obstruction. <Sarah Gann MD - Last Filed: 04/12/24 18:08> Discharge Plan Discharge Clinical Impression: Small bowel obstruction, Lactic acidosis Leukocytosis Qualifiers: Leukocytosis type: unspecified Qualified Code(s): D72.829 - Elevated white blood cell count, unspecified <Kareen Roth PA-C - Last Filed: 04/11/24 23:30> Patient Disposition: Still a Patient <ELVIRA Umanzor Last Filed: 04/11/24 23:30> Condition: Stable <ELVIRA Umanzor Last Filed: 04/11/24 23:30>
[2024-04-11] MEDS: SODIUM CHLORIDE 0.9% IV 1,000 ML 999 ML IV CONT ×2 (22:35→23:40)
[2024-04-11 23:25] LABS: Magnesium 1.9 mg/dL (1.6-2.3)
[2024-04-11 23:32] LABS: Reflex Lactic Acid Yes or No Add Lactic
[2024-04-11] MEDS: MORPHINE SULFATE (*CRX) 4 MG/ML INJ IV PUSH (23:39)
[2024-04-12 00:15] VITALS: BMI 30.8
[2024-04-12] MEDS: PIPERACILLN/TAZ 3.375GM/NS50ML 3.375 GM/50 ML BAG IVPB ×4 (00:22→17:10)
--- NOTE | 2024-04-12 00:37 | PC.NURSE ---
Admission report to [facility].
[2024-04-12 01:57] VITALS: BP 130/79; PULSE 100; RESP 16; TEMP 36.2; O2SAT 97
[2024-04-12] MEDS: MORPHINE SULFATE (*CRX) 4 MG/ML INJ IV PUSH ×4 (02:13→18:56)
[2024-04-12] MEDS: SODIUM CHLORIDE 0.9% IV 1,000 ML 100 ML IV CONT ×3 (02:13→22:53)
[2024-04-12 02:16] LABS: Add Urine Microscopic? YES; Appearance Urine Clear (Clear); Bacteria Urine None Seen /hpf; Bilirubin Urine Negative (Negative); Blood Urine Negative (Negative); Color Urine Yellow (Yellow); Glucose Urine UA Negative (Negative); Ketones Urine Trace mg/dL (Negative); Leukocyte Esterase Ur Negative LEU/UL (Negative); Nitrate Urine Negative (Negative); Non Pathogenic Casts 0-2; Protein Urine Trace mg/dL (Negative); RBC Urine 0-2 /hpf (0-2); Specific Grav Ur > 1.045 (1.001-1.035); Squamous Epithelial Cell Urine None Seen /hpf (Few); WBC Urine 0-5 /hpf (0-3); pH Urine 5.5 (5.0-9.0)
[2024-04-12 05:25] VITALS: BP 137/64; PULSE 104; RESP 16; TEMP 36.8; O2SAT 95
[2024-04-12] MEDS: ONDANSETRON INJ 4 MG/2 ML VIAL IV PUSH ×3 (06:25→18:56)
[2024-04-12 07:18] LABS: Lactic Acid 1.4 mmol/L (0.7-2.0)
[2024-04-12 08:08] LABS: Basophils Absolute Auto 0.1 K/mm3 (0.0-0.1); Basophils Percent Auto 0.4 % (0.2-1.2); Eosinophils Percent Auto 0.2 % (0-4.4); Hematocrit 45.2 % (42.0-52.0); Hemoglobin 14.1 g/dL (14.0-18.0); Immature Granulocyte Absolute 0.06 K/mm3 (0.00-0.031); Immature Granulocyte Percent A 0.4 % (0-0.5); Lymphocytes Absolute Auto 1.29 K/mm3 (0.9-3.2); Lymphocytes Percent Auto 7.9 % (18.3-44.2); Mean Corpuscular HGB Conc 31.2 g/dl (32-36); Mean Corpuscular Hemoglobin 27.8 pg (26-34); Mean Corpuscular Volume 89.2 fl (80-100); Mean Platelet Volume 10.8 fl (7.4-10.4); Monocytes Absolute Auto 2.2 K/mm3 (0.1-0.6); Monocytes Percent Auto 13.3 % (2.6-8.5); Neutrophils Absolute Auto 12.8 K/mm3 (1.3-6.7); Neutrophils Percent Auto 77.8 % (45.5-73.1); Platelet Count Result 209 k/mm3 (150-375); Red Blood Count 5.07 M/mm3 (4.6-6.20); White Blood Count 16.4 K/mm3 (4.5-10.0)
[2024-04-12 08:26] LABS: Alanine Aminotransferase 25 U/L (6-50); Albumin Level 3.7 g/dL (3.5-5.1); Alkaline Phosphatase 107 U/L (38-126); Anion Gap 3 mmol/L (4-12); Aspartate Amino Transferase 39 U/L (17-59); Bilirubin,Total 1.2 mg/dL (0.2-1.3); Blood Urea Nitrogen 14 mg/dL (9-20); Calcium 8.4 mg/dL (8.4-10.2); Carbon Dioxide 27 mmol/L (22-30); Chloride 106 mmol/L (98-107); Estimated CRCL calculation 61 ml/min; Estimated Glomerular Filt Rate > 60; Glucose 122 mg/dL (65-110); Potassium 4.4 mmol/L (3.4-5.0); Sodium 136 mmol/L (137-145)
--- NOTE | 2024-04-12 10:35 | P.HP_ITS ---
H&P: HPI History of Present Illness Date/Time: 04/12/24 10:35 Chief Complaint: Abdominal pain Narrative: Patient is a 78 year old male that came to the ER with right sided abdominal pain that started yesterday morning. He began having nausea and vomiting, increased belching. Patient has history of several previous small- bowel obstructions. Thought to be related to previous abdominal surgeries. His tory of appendectomy, inguinal hernia repair, radical lymph node dissection from the abdomen related to testicular cancer. States symptoms feel similar to previous small bowel obstruction. Patient had a small hard bowel movement yesterday morning. Last bowel movement prior was 3 days ago. Denies fevers. Reports nausea. Abdominal pain is a 6 , constant, and aching. They were unable to place NGT in ER, patient reports that right nare bleed and left nare was to closed off. Abdominal pelvis CT with contrast showed a small obstruction, possibly secondary to adhesions in the right lower quadrant. WBC 20.2, lactic acid 3.2, alk phos 128. BC x2 drawn. Surgery consulted. Review of Systems Review of Systems: All systems reviewed & are unremarkable except as noted in HPI and below PMFSH Past Medical History Medical History Vitamin D deficiency Degenerative joint disease (DJD) of lumbar spine Erectile dysfunction History of shingles (~01/2020) Herpes zoster virus infection of face and ear nerves (~01/2020) COPD with asthma Dyslipidemia Recurrent epistaxis CAD in [place] artery Environmental allergies Essential (primary) hypertension COPD (chronic obstructive pulmonary disease) PFTs in April 2017 demonstrated moderate obstructive ventilatory defect with acute bronchodilator response. Benign colon polyp Chronic low back pain Anxiety Osteoarthritis GERD (gastroesophageal reflux disease) Irritable bowel syndrome Coronary artery disease Cardiac catheterization in May [address] Perez, done for evaluation of abnormal stress test, should coronary artery disease with 100% chronic total occlusion of the right coronary artery with, and moderate stenosis of a diagonal as well as the distal circumflex. Treated with aggressive medical management. 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 No adjuvant therapy. Small bowel obstruction 05/2019 Surgical History Surgical History History of basal cell carcinoma (BCC) excision (~2022) Back History of coronary artery bypass graft (~05/2019) Status post radical unilateral orchiectomy 1989 Right-sided orchiectomy with radical lymph node dissection, at the age of 47 for immature teratoma. History of inguinal herniorrhaphy (~1989) 1989 right inguinal hernia repair Status post appendectomy (~1959) 1959 - Secondary to ruptured appendicitis. History of ankle surgery (~1989) 1989 - Left ankle ORIF with hardware. Status post surgical removal of malignant neoplasm of skin (~2018) Basal cell carcinoma excised from the nose. Family History Family History Mother Breast cancer Hypertension Father Family history of coronary artery disease Cerebrovascular accident Hypertension Social History Social History Social History: The patient lives in [place] with his . He designates his , Eryn, as his surrogate decision maker and he wishes to be a full code. The patient smoked about half a pack of cigarettes per day and quit in 2013. He denies alcohol and drug abuse. Years smoked: 30 Smoking status: Former smoker Tobacco type: cigarettes Smoking end date: 05/04/08 Alcohol intake: never Substance use: never Substance use type: does not use Do You Feel Safe in your Home?: Yes Lack of Transportation: No Lack of Food: Never True Current Housing: I Have Housing Concerned About Future Housing: No Difficulty Paying Gas/Electric Bills: No Difficulty Paying for Meds: No Currently Unemployed: No Education: Associate Degree Difficulty w/ Childcare or Family Care: No Living arrangements: with family Additional living arrangements comments: Occupation/Education: occupation Additional occupation/education comments: [employer] Gender identity (if verbalized by the patient): Male Sexual Orientation (if Verbalized by the Patient): Straight or Heterosexual Spiritual care concerns: No Agree to blood products: Yes Meds Home Medications and Allergies Home Medications ?Medication ?Instructions ?Recorded ?Confirmed ?Type aspirin 81 mg tablet,delayed 81 mg PO DAILY 05/13/19 04/12/24 History release fluticasone propionate 50 1 spray intranasal DAILY Allergies 05/13/19 04/12/24 History mcg/actuation nasal spray,suspension (Flonase Allergy Relief) lisinopril 10 mg tablet 10 mg PO DAILY 11/17/19 04/12/24 History metoprolol tartrate 50 mg tablet 50 mg PO BID 04/01/22 04/12/24 History cetirizine 10 mg tablet (Zyrtec) 10 mg PO DAILY PRN Allergies 05/20/22 04/12/24 History melatonin 2.5 mg chewable tablet 10 mg PO HS PRN Sleep 11/17/22 04/12/24 History cholecalciferol (vitamin D3) 50 50 mcg PO DAILY 04/14/23 04/12/24 History mcg (2,000 unit) tablet fluticasone furoate 100 1 inh inhalation DAILY #180 ea 09/17/23 04/12/24 Rx mcg-vilanterol 25 mcg/dose inhalation powder (Breo Ellipta) atorvastatin 40 mg tablet 40 mg PO QHS #90 tabs 01/29/24 04/12/24 Rx pregabalin 100 mg capsule 100 mg PO BID-TID PRN post 02/03/24 04/12/24 Rx herpetic neuralgia #270 caps omeprazole 20 mg capsule,delayed 20 mg PO DAILY #90 caps 02/08/24 04/12/24 Rx release alprazolam 1 mg tablet 1 mg PO DAILY PRN anxiety #90 tabs 02/19/24 04/12/24 Rx tramadol 50 mg tablet 50 mg PO BID PRN pain #60 tabs 04/11/24 04/12/24 Rx Allergies Allergy/AdvReac Type Severity Reaction Status Date / Time carbamazepine Allergy Severe Blurred Verified 12/15/23 16:22 vision naproxen AdvReac Unknown Nausea and Verified 12/15/23 16:22 Vomiting Vital Signs Vital Signs - 24 hr 04/11/24 16:59 04/11/24 18:39 04/12/24 01:57 Temperature 98.2 F 97.1 F L Pulse Rate 62 72 100 Respiratory Rate 18 17 16 Blood Pressure 131/73 124/68 130/79 Pulse Oximetry 97 95 97 Oxygen Delivery 04/12/24 05:25 04/12/24 07:20 04/12/24 08:00 Temperature 98.2 F Pulse Rate 104 H Respiratory Rate 16 Blood Pressure 137/64 Pulse Oximetry 95 Oxygen Delivery Room Air Room Air Exam Const: General: no acute distress and uncomfortable Eyes: Sclera: sclerae normal Resp: Effort & Inspection: normal respiratory effort Auscultation: clear to auscultation bilaterally Cardio: Rate: regular rate Rhythm: regular rhythm GI: GI Palp: Yes Soft to palpation and Yes Tenderness to palpation present (GI) (RUQ and RLQ tenderness. ) Other: Hypoactive bowel sounds Skin: General skin exam: no rashes or lesions noted Neuro: Speech: normal speech Extrem: General: normal to inspection and no pedal edema Psych: Mental Status: mental status grossly normal Affect: normal affect H&P: Results Labs Labs: Short CBC 04/11/24 04/12/24 Range/Units 19:54 06:58 WBC 20.2 H 16.4 H (4.5-10.0) K/mm3 Hgb 15.7 14.1 (14.0-18.0) g/dL Hct 48.6 45.2 (42.0-52.0) % Plt Count 218 209 (150-375) k/mm3 BMP 04/11/24 04/12/24 20:27 06:58 Sodium 137 136 L Potassium 4.1 4.4 Chloride 101 106 Carbon Dioxide 28 27 BUN 15 14 Creatinine 1.00 1.00 Glucose 133 H 122 H Calcium 9.4 8.4 Liver Function 04/11/24 04/12/24 Range/Units 20:27 06:58 Total Bilirubin 1.0 1.2 (0.2-1.3) mg/dL AST 33 39 (17-59) U/L ALT 29 25 (6-50) U/L Alkaline Phosphatase 128 H 107 (38-126) U/L Albumin 4.5 3.7 (3.5-5.1) g/dL Urine 04/12/24 Range/Units 02:01 Urine Color Yellow (Yellow) Urine Appearance Clear (Clear) Urine pH 5.5 (5.0-9.0) Ur Specific [place] > 1.045 H (1.001-1.035) Urine Protein Trace (Negative) mg/dL Urine Glucose (UA) Negative (Negative) mg/dL Assessment and Plan Assessment and plan (1) Small bowel obstruction: Code(s): K56.609 - Unspecified intestinal obstruction, unspecified as to partial versus complete obstruction Status: Acute Assessment and Plan: * NPO * NS@100 ml/hr * Pain control * Zosyn 3.375 gm IVPB q 6 * Surgery following and small bowel follow through ordered. * Blood cultures no growth to date. (2) Leukocytosis: Qualifiers: Leukocytosis type: unspecified Qualified Code(s): D72.829 - Elevated white blood cell count, unspecified Code(s): D72.829 - Elevated white blood cell count, unspecified Status: Acute Assessment and Plan: * WBC 20.2 on admission, improved to 16.4. * Zosyn 3.375 gm IVPB q 6 * Lactic acid improved from 3.2 to 1.4. (3) COPD with asthma: Code(s): J44.9 - Chronic obstructive pulmonary disease, unspecified Status: Acute Assessment and Plan: * Advair 115-21 mcg 2 puff q 12. (4) CAD in [place] artery: Code(s): I25.10 - Atherosclerotic heart disease of [place] coronary artery without angina pectoris Status: Acute Assessment and Plan: * Atorvastatin 40 mg PO at bedtime. * Lisinopril 10 mg PO daily * Metoprolol Tartrate 50 mg PO q 12. (5) Nausea: Code(s): R11.0 - Nausea Status: Acute Assessment and Plan: * Prochlorperazine 10 mg IV q 6 PRN Quality VTE Prophylaxis VTE prophylaxis: mechanical ordered Hospitalist MIPS Advance Care Plan I have confirmed that the patient's Advanced Care Plan is present, code status is documented, or surrogate decision maker is listed in patient medical record.: Yes Medication Reconciliation I have utilized all available resources to obtain, update and review the patients current medications (includes all prescriptions, OTC, herbals, cannabis, and nutritional supplements).: Yes
--- NOTE | 2024-04-12 12:16 | P.CONGS_ITS ---
Assessment and Plan Assessment and plan (1) Small bowel obstruction: Code(s): K56.609 - Unspecified intestinal obstruction, unspecified as to partial versus complete obstruction Status: Acute Assessment and Plan: CT showed SBO with transition point in right lower quadrant likely to an adhesion. He had an open laparotomy for lymph node dissection about 20 years ago. He has since had multiple small bowel obstructions that were treated nonoperatively. His lactic acid was 3.3 on admission, but normalized after receiving IV fluids. WBC count is trending down. His abdominal pain has improved and he has no peritoneal signs on exam. NG tube placement was attempted multiple times and was unsuccessful. He ended up with nose bleeding and attempts have been halted. We will keep him NPO for now and order a water soluble small bowel series to further evaluate the small bowel obstruction. Will continue to follow along with serial abdominal exams and await SBS results. If he continues to have evidence of an obstruction, we may need to consider another attempt at NG placement under fluoroscopy. (2) Leukocytosis: Qualifiers: Leukocytosis type: unspecified Qualified Code(s): D72.829 - Elevated white blood cell count, unspecified Code(s): D72.829 - Elevated white blood cell count, unspecified Status: Acute (3) COPD with asthma: Code(s): J44.9 - Chronic obstructive pulmonary disease, unspecified Status: Acute (4) CAD in [place] artery: Code(s): I25.10 - Atherosclerotic heart disease of [place] coronary artery without angina pectoris Status: Acute Plan I have discussed the patient's case and plan of care with Dr. Terry. Thank you for allowing us to see the patient in consultation and we will continue to follow along with you. History of Present Illness Consult details Consult date: 04/12/24 Reason for consult: other (Small bowel obstruction) Requesting physician: Kareen Roth PA-C Narrative: This is a 78-year-old who we have been asked to see in surgical consultation for a small-bowel obstruction. He has had multiple previous abdominal surgeries and reports multiple previous episodes of small obstructions that were treated conservatively. He reports at least 4 previous small-bowel obstructions, with the most recent being in 2019 when he additionally had an MS and was transferred acutely to [facility] when he had his CABG. He has only required NG tube decompression once in the past, but otherwise was treated with bowel rest and would improve with nonoperative management. Yesterday, he developed right- sided abdominal pain that was consistent with previous episodes of a bowel obstruction. He was concerned this was occurring again and proceeded to the ED for evaluation. While waiting in the ED, he began to have nausea and multiple episodes of vomiting. [place] [address], lactic acid 3.2. CT scan of the abdomen and pelvis showed small-bowel obstruction, possibly secondary to adhesions in the right lower quadrant with transition point in the right lower quadrant. He had multiple attempts at NG tube placement in the ED. He reports that they were not even able to pass NG tube on his left nare because it is blocked, and when attempting on the right he had severe nose bleeding with attempts, which has since stopped. He would prefer avoid NG tube placement. His abdominal pain is improved some and he remains nauseous. He has not vomited since being in the ED. He is not passing any flatus and his last bowel movement was a small bowel movement yesterday around the time his symptoms started. He has a history of an immature teratoma requiring a right orchidectomy about 20 years ago. About 6 months after his initial surgery, he was reportedly was taken to surgery for an open laparotomy for radical lymph node dissection. He also had an inguinal hernia repaired at that time. Since open laparotomy, he has had multiple small bowel obstructions. He also had an open appendectomy at age 14. Review of Systems 2 Review of Systems: All systems reviewed & are unremarkable except as noted in HPI and below PMFSH Past Medical History Medical History Anxiety Benign colon polyp CAD in [place] artery Chronic low back pain COPD (chronic obstructive pulmonary disease) PFTs in April 2017 demonstrated moderate obstructive ventilatory defect with acute bronchodilator response. COPD with asthma Coronary artery disease Cardiac catheterization in May [address] Perez, done for evaluation of abnormal stress test, should coronary artery disease with 100% chronic total occlusion of the right coronary artery with, and moderate stenosis of a diagonal as well as the distal circumflex. Treated with aggressive medical management. 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 No adjuvant therapy. Vitamin D deficiency Surgical History Surgical History History of basal cell carcinoma (BCC) excision (~2022) Back History of coronary artery bypass graft (~05/2019) Status post radical unilateral orchiectomy 1989 Right-sided orchiectomy with radical lymph node dissection, at the age of 47 for immature teratoma. History of inguinal herniorrhaphy (~1989) 1989 right inguinal hernia repair Status post appendectomy (~1959) 1959 - Secondary to ruptured appendicitis. History of ankle surgery (~1989) 1989 - Left ankle ORIF with hardware. Status post surgical removal of malignant neoplasm of skin (~2018) Basal cell carcinoma excised from the nose. Family History Family History Mother Breast cancer Hypertension Father Family history of coronary artery disease Cerebrovascular accident Hypertension Social History Social History Social History: The patient lives in [place] with his . He designates his , Eryn, as his surrogate decision maker and he wishes to be a full code. The patient smoked about half a pack of cigarettes per day and quit in 2013. He denies alcohol and drug abuse. Years smoked: 30 Smoking status: Former smoker Tobacco type: cigarettes Smoking end date: 05/04/08 Alcohol intake: never Substance use: never Substance use type: does not use Do You Feel Safe in your Home?: Yes Lack of Transportation: No Lack of Food: Never True Current Housing: I Have Housing Concerned About Future Housing: No Difficulty Paying Gas/Electric Bills: No Difficulty Paying for Meds: No Currently Unemployed: No Education: Associate Degree Difficulty w/ Childcare or Family Care: No Living arrangements: with family Additional living arrangements comments: Occupation/Education: occupation Additional occupation/education comments: [employer] Gender identity (if verbalized by the patient): Male Sexual Orientation (if Verbalized by the Patient): Straight or Heterosexual Spiritual care concerns: No Agree to blood products: Yes Meds Home Medications and Allergies Home Medications ?Medication ?Instructions ?Recorded ?Confirmed ?Type aspirin 81 mg tablet,delayed 81 mg PO DAILY 05/13/19 04/12/24 History release fluticasone propionate 50 1 spray intranasal DAILY Allergies 05/13/19 04/12/24 History mcg/actuation nasal spray,suspension (Flonase Allergy Relief) lisinopril 10 mg tablet 10 mg PO DAILY 11/17/19 04/12/24 History metoprolol tartrate 50 mg tablet 50 mg PO BID 04/01/22 04/12/24 History cetirizine 10 mg tablet (Zyrtec) 10 mg PO DAILY PRN Allergies 05/20/22 04/12/24 History melatonin 2.5 mg chewable tablet 10 mg PO HS PRN Sleep 11/17/22 04/12/24 History cholecalciferol (vitamin D3) 50 50 mcg PO DAILY 04/14/23 04/12/24 History mcg (2,000 unit) tablet fluticasone furoate 100 1 inh inhalation DAILY #180 ea 09/17/23 04/12/24 Rx mcg-vilanterol 25 mcg/dose inhalation powder (Breo Ellipta) atorvastatin 40 mg tablet 40 mg PO QHS #90 tabs 01/29/24 04/12/24 Rx pregabalin 100 mg capsule 100 mg PO BID-TID PRN post 02/03/24 04/12/24 Rx herpetic neuralgia #270 caps omeprazole 20 mg capsule,delayed 20 mg PO DAILY #90 caps 02/08/24 04/12/24 Rx release alprazolam 1 mg tablet 1 mg PO DAILY PRN anxiety #90 tabs 02/19/24 04/12/24 Rx tramadol 50 mg tablet 50 mg PO BID PRN pain #60 tabs 04/11/24 04/12/24 Rx Allergies Allergy/AdvReac Type Severity Reaction Status Date / Time carbamazepine Allergy Severe Blurred Verified 12/15/23 16:22 vision naproxen AdvReac Unknown Nausea and Verified 12/15/23 16:22 Vomiting Vital Signs Vital Signs - 24 hr 04/11/24 16:59 04/11/24 18:39 04/12/24 01:57 Temperature 98.2 F 97.1 F L Pulse Rate 62 72 100 Respiratory Rate 18 17 16 Blood Pressure 131/73 124/68 130/79 Pulse Oximetry 97 95 97 Oxygen Delivery 04/12/24 05:25 04/12/24 07:20 04/12/24 08:00 Temperature 98.2 F Pulse Rate 104 H Respiratory Rate 16 Blood Pressure 137/64 Pulse Oximetry 95 Oxygen Delivery Room Air Room Air Exam 2 Const: General: comfortable and no acute distress Nutritional Appearance: a verage body habitus Orientation/consciousness: patient oriented x3 HENMT: Head: normocephalic and atraumatic Ears: hearing grossly normal bilaterally Mouth: Yes moist mucous membranes Eyes: General: appearance normal, both eyes and all related structures P upils: Equal, round and reactive pupils present Neck: Neck: normal visual inspection and full ROM Resp: Effort & Inspection: no respiratory distress Auscultation: clear to auscultation bilaterally Cardio: Rate: regular rate Rhythm: regular rhythm Heart sounds: S1 normal heart sound present and S2 normal heart sound present Peripheral pulses: Peripheral pulses 2+ throughout GI: Inspection: scar (large midline scar), no visible herniation and other (mildly distended) GI Palp: Yes Soft to palpation, Yes Tenderness to palpation present (GI) (RUQ and RLQ tenderness), No Guarding due to palpation present (GI), Yes No hepatosplenomegaly present, No Rebound tenderness present and Yes Other GI palpation findings present (no peritoneal signs) A uscultation: Hypoactive bowel sounds present Skin: General skin exam: normal color Neuro: General: moves all extremities and no focal motor deficits Speech: n ormal speech Motor exam (neuro): 5/5 motor strength present throughout Extrem: General: normal to inspection and no edema Psych: Mental Status: mental status grossly normal Attitude: cooperative Insight: Good insight present (Psych) Judgement: Good judgement present (Psych) Results Labs 04/12/24 06:58 04/12/24 06:58 Labs: Abnormal lab results 04/11/24 04/11/24 04/12/24 Range/Units 19:54 20:27 02:01 WBC 20.2 H (4.5-10.0) K/mm3 MCHC (32-36) g/dl RDW 14.7 H (11.5-14.5) % MPV (7.4-10.4) fl Neut % (Auto) 73.4 H (45.5-73.1) % Lymph % (Auto) 14.0 L (18.3-44.2) % [place] % (Auto) 9.3 H (2.6-8.5) % [place] # (Auto) 1.9 H (0.1-0.6) K/mm3 Eos # (Auto) 0.5 H (0-0.3) K/mm3 Abs Immat Gran (auto) 0.07 H (0.00-0.031) K/mm3 Absolute Neuts (auto) 14.8 H (1.3-6.7) K/mm3 Sodium (137-145) mmol/L Anion Gap (4-12) mmol/L Glucose 133 H (65-110) mg/dL Lactic Acid 3.2 H (0.7-2.0) mmol/L Alkaline Phosphatase 128 H (38-126) U/L Ur Specific [place] > 1.045 H (1.001-1.035) Urine Ketones Trace H (Negative) mg/dL 04/12/24 Range/Units 06:58 WBC 16.4 H (4.5-10.0) K/mm3 MCHC 31.2 L (32-36) g/dl RDW 15.0 H (11.5-14.5) % MPV 10.8 H (7.4-10.4) fl Neut % (Auto) 77.8 H (45.5-73.1) % Lymph % (Auto) 7.9 L (18.3-44.2) % [place] % (Auto) 13.3 H (2.6-8.5) % [place] # (Auto) 2.2 H (0.1-0.6) K/mm3 Eos # (Auto) (0-0.3) K/mm3 Abs Immat Gran (auto) 0.06 H (0.00-0.031) K/mm3 Absolute Neuts (auto) 12.8 H (1.3-6.7) K/mm3 Sodium 136 L (137-145) mmol/L Anion Gap 3 L (4-12) mmol/L Glucose 122 H (65-110) mg/dL Lactic Acid (0.7-2.0) mmol/L Alkaline Phosphatase (38-126) U/L Ur Specific [place] (1.001-1.035) Urine Ketones (Negative) mg/dL Diabetes panel 04/11/24 04/12/24 Range/Units 20:27 06:58 Sodium 137 136 L (137-145) mmol/L Potassium 4.1 4.4 (3.4-5.0) mmol/L Chloride 101 106 (98-107) mmol/L Carbon Dioxide 28 27 (22-30) mmol/L BUN 15 14 (9-20) mg/dL Creatinine 1.00 1.00 (0.7-1.3) mg/dL Glucose 133 H 122 H (65-110) mg/dL Calcium 9.4 8.4 (8.4-10.2) mg/dL AST 33 39 (17-59) U/L ALT 29 25 (6-50) U/L Alkaline Phosphatase 128 H 107 (38-126) U/L Total Protein 8.0 7.0 (6.3-8.2) g/dL Albumin 4.5 3.7 (3.5-5.1) g/dL Calcium panel 04/11/24 04/12/24 Range/Units 20:27 06:58 Calcium 9.4 8.4 (8.4-10.2) mg/dL Albumin 4.5 3.7 (3.5-5.1) g/dL Pituitary panel 04/11/24 04/12/24 Range/Units 20:27 06:58 Sodium 137 136 L (137-145) mmol/L Potassium 4.1 4.4 (3.4-5.0) mmol/L Chloride 101 106 (98-107) mmol/L Carbon Dioxide 28 27 (22-30) mmol/L BUN 15 14 (9-20) mg/dL Creatinine 1.00 1.00 (0.7-1.3) mg/dL Glucose 133 H 122 H (65-110) mg/dL Calcium 9.4 8.4 (8.4-10.2) mg/dL Adrenal panel 04/11/24 04/12/24 Range/Units 20:27 06:58 Sodium 137 136 L (137-145) mmol/L Potassium 4.1 4.4 (3.4-5.0) mmol/L Chloride 101 106 (98-107) mmol/L Carbon Dioxide 28 27 (22-30) mmol/L BUN 15 14 (9-20) mg/dL Creatinine 1.00 1.00 (0.7-1.3) mg/dL Glucose 133 H 122 H (65-110) mg/dL Calcium 9.4 8.4 (8.4-10.2) mg/dL Total Bilirubin 1.0 1.2 (0.2-1.3) mg/dL AST 33 39 (17-59) U/L ALT 29 25 (6-50) U/L Alkaline Phosphatase 128 H 107 (38-126) U/L Total Protein 8.0 7.0 (6.3-8.2) g/dL Albumin 4.5 3.7 (3.5-5.1) g/dL All other labs normal. Imaging Additional studies: ITS Impressions Abdomen/Pelvis CT 04/11/24 22:15 IMPRESSION: Small bowel obstruction, possibly secondary to adhesions in the right lower quadrant.
[2024-04-12 14:00] VITALS: BP 126/67; PULSE 97; RESP 16; TEMP 36.8; O2SAT 96
[2024-04-12] MEDS: FLUTICASONE/SALMETEROL 115-21 MCG INHALER 1 PUFF 2 PUFF INHALATION (20:01)
[2024-04-12 20:02] VITALS: PULSE 94; RESP 18
[2024-04-12 20:36] VITALS: PULSE 88
[2024-04-12] MEDS: METOPROLOL TARTRATE 50 MG TAB PO (20:36)
[2024-04-12] MEDS: ATORVASTATIN 40 MG TABLET PO (20:36)
[2024-04-12 21:10] VITALS: BP 156/70; PULSE 95; RESP 16; TEMP 37; O2SAT 92
[2024-04-13] MEDS: PIPERACILLN/TAZ 3.375GM/NS50ML 3.375 GM/50 ML BAG IVPB ×4 (01:00→17:31)
[2024-04-13] MEDS: MELATONIN 5 MG TABLET 10 MG PO ×2 (01:59→21:26)
[2024-04-13 05:20] VITALS: BP 139/60; PULSE 63; RESP 20; TEMP 36.6; O2SAT 94
[2024-04-13 06:23] LABS: Basophils Percent Auto 0.3 % (0.2-1.2); Eosinophils Absolute Auto 0.1 K/mm3 (0-0.3); Eosinophils Percent Auto 1.4 % (0-4.4); Hematocrit 39.1 % (42.0-52.0); Hemoglobin 12.2 g/dL (14.0-18.0); Immature Granulocyte Absolute 0.02 K/mm3 (0.00-0.031); Immature Granulocyte Percent A 0.2 % (0-0.5); Lymphocytes Absolute Auto 1.24 K/mm3 (0.9-3.2); Lymphocytes Percent Auto 13.3 % (18.3-44.2); Mean Corpuscular HGB Conc 31.2 g/dl (32-36); Mean Corpuscular Volume 89.7 fl (80-100); Monocytes Absolute Auto 2.1 K/mm3 (0.1-0.6); Monocytes Percent Auto 22.6 % (2.6-8.5); Neutrophils Absolute Auto 5.8 K/mm3 (1.3-6.7); Neutrophils Percent Auto 62.2 % (45.5-73.1); Platelet Count Result 173 k/mm3 (150-375); Red Blood Count 4.36 M/mm3 (4.6-6.20); Red Cell Distribution Width 15.3 % (11.5-14.5); White Blood Count 9.3 K/mm3 (4.5-10.0)
[2024-04-13 07:14] LABS: Alanine Aminotransferase 19 U/L (6-50); Albumin Level 3.1 g/dL (3.5-5.1); Alkaline Phosphatase 82 U/L (38-126); Anion Gap 3 mmol/L (4-12); Aspartate Amino Transferase 23 U/L (17-59); Bilirubin,Total 1.2 mg/dL (0.2-1.3); Blood Urea Nitrogen 14 mg/dL (9-20); Carbon Dioxide 25 mmol/L (22-30); Chloride 111 mmol/L (98-107); Estimated CRCL calculation 61 ml/min; Estimated Glomerular Filt Rate > 60; Glucose 105 mg/dL (65-110); Potassium 3.6 mmol/L (3.4-5.0); Sodium 139 mmol/L (137-145)
[2024-04-13] MEDS: lisinopriL 10 MG TABLET PO (08:36)
[2024-04-13] MEDS: METOPROLOL TARTRATE 50 MG TAB PO ×2 (08:37→21:25)
[2024-04-13] MEDS: PANTOPRAZOLE 40 MG TABLET PO (08:37)
[2024-04-13] MEDS: CHOLECALCIFEROL 1,000 UNITS TABLET 2000 UNITS PO (08:37)
[2024-04-13] MEDS: FLUTICASONE PROPIONATE 0.05% NA SPR 16 GM BTL (*BKC) 1 SPRAY NASAL (08:37)
[2024-04-13] MEDS: FLUTICASONE/SALMETEROL 115-21 MCG INHALER 1 PUFF 2 PUFF INHALATION ×2 (09:31→20:08)
[2024-04-13 09:47] VITALS: PULSE 81; RESP 18
[2024-04-13] MEDS: SODIUM CHLORIDE 0.9% IV 1,000 ML 100 ML IV CONT (11:26)
--- NOTE | 2024-04-13 13:34 | PM.PNGS ---
Progress Note: A&P Assessment and Plan (1) Small bowel obstruction: Code(s): K56.609 - Unspecified intestinal obstruction, unspecified as to partial versus complete obstruction Status: Acute Assessment and Plan: SBS showed partial small bowel obstruction with transit time to colon in 2-3 hours. Clinically improving, abdominal exam benign, bowels are moving. Will start a clear liquid diet. Advance diet as tolerated. (2) Leukocytosis: Qualifiers: Leukocytosis type: unspecified Qualified Code(s): D72.829 - Elevated white blood cell count, unspecified Code(s): D72.829 - Elevated white blood cell count, unspecified Status: Acute Assessment and Plan: Resolved. White blood cell count normal today. Plan I have discussed the patient's case and plan of care with Dr. Terry. Subjective Subjective Date/Time Seen: 04/13/24 10:34 Patient reports: no new complaints, feels better, flatus and bowel movement Interval history: Patient feeling much better today. No abdominal pain this morning. Small-bowel series went through the colon in 2-3 hours. He has had multiple bowel movements since receiving the contrast. No nausea or bloating this morning. Exam Const: General: comfortable and no acute distress GI: Inspection: non-distended GI Palp: Yes Soft to palpation, No Tenderness to palpation present (GI), No Guarding due to palpation present (GI) and No Rebound tenderness present Auscultation: normal bowel sounds Objective Data Vital Signs Vital Signs: Vital Signs - 24 hr 04/12/24 14:00 04/12/24 20:02 04/12/24 20:36 Temperature 98.2 F Pulse Rate 97 94 88 Respiratory Rate 16 18 Blood Pressure 126/67 Pulse Oximetry 96 04/12/24 21:10 04/13/24 05:20 04/13/24 09:47 Temperature 98.6 F 97.8 F Pulse Rate 95 63 81 Respiratory Rate 16 20 18 Blood Pressure 156/70 H 139/60 Pulse Oximetry 92 94 Intake/Output Intake/Output: Intake & Output 04/10/24 04/11/24 04/12/24 04/13/24 23:59 23:59 23:59 23:59 Intake Total 1000 2150 1200 Output Total 325 Balance 1000 1825 1200 Meds/Results Medications: Active Medications Generic Name Dose Route Start Last Admin Trade Name Freq PRN Reason Stop Dose Admin Atorvastatin Calcium 40 mg 04/12/24 21:00 04/12/24 20:36 Atorvastatin 40 Mg Tablet PO 40 mg QHS SLAVA Administration Dextrose 12.5 gm 04/11/24 23:18 Dextrose 50% 25 Gm/50 Ml Syringe IV PUSH PRN PRN Hypoglycemia Protocol Fluticasone Propionate 1 spray 04/13/24 09:00 04/13/24 08:37 Fluticasone Propionate 0.05% Na Spr 16 Gm Btl (*Bkc) NASAL 1 spray DAILY SLAVA Administration Glucagon 1 mg 04/11/24 23:18 Glucagon For Inj 1 Mg Vial IM PRN PRN Hypoglycemia Protocol Glucose 15 gm 04/11/24 23:18 Glucose Oral Gel 15 Gm Of Glucse In 37.5 Gm Tube PO PRN PRN Hypoglycemia Protocol Piperacillin/Tazobactam/Dextrose 3.375 gm in 50 mls @ 100 mls/hr 04/12/24 06:00 04/13/24 11:26 Zosyn 3.375 Gm/Ns 50 Ml IVPB 100 mls/hr Q6H SLAVA Administration Sodium Chloride 1,000 mls @ 100 mls/hr 04/11/24 23:20 04/13/24 11:26 Normal Saline Iv IV CONT 100 mls/hr .Q10H SLAVA Administration Dextrose 1,000 mls @ 100 mls/hr 04/11/24 23:18 Dextrose 5% 1,000 Ml IVPB PRN PRN Hypoglycemia Protocol Lisinopril 10 mg 04/13/24 09:00 04/13/24 08:36 Lisinopril 10 Mg Tablet PO 10 mg DAILY SLAVA Administration Loratadine 10 mg 04/12/24 10:49 Loratadine 10 Mg Tablet PO DAILY PRN ALLERGIES Melatonin 10 mg 04/12/24 16:40 04/13/24 01:59 Melatonin 5 Mg Tablet PO 10 mg HS PRN Administration Sleep Metoprolol Tartrate 50 mg 04/12/24 21:00 04/13/24 08:37 Metoprolol Tartrate 50 Mg Tab PO 50 mg Q12HR SLAVA Administration Morphine Sulfate 4 mg 04/11/24 23:18 04/12/24 18:56 Morphine Sulfate (*Crx) 4 Mg/Ml Inj IV PUSH 4 mg Q2H PRN Administration Pain Rated 7-10 Ondansetron HCl 4 mg 04/11/24 23:18 04/12/24 18:56 Ondansetron Inj 4 Mg/2 Ml Vial IV PUSH 4 mg Q4H PRN Administration Nausea Pantoprazole Sodium 40 mg 04/13/24 09:00 04/13/24 08:37 Pantoprazole 40 Mg Tablet PO 40 mg QAM SLAVA Administration Fluticasone/Salmeterol 2 puff 04/12/24 20:00 04/13/24 09:31 Fluticasone/Salmeterol 115-21 Mcg Inhaler 1 Puff INHALATION 2 puff Q12HRT SLAVA Administration Vitamin D 2,000 units 04/13/24 09:00 04/13/24 08:37 Cholecalciferol 1,000 Units Tablet PO 2,000 units DAILY SLAVA Administration Radiology Results: ITS Impressions Abdomen/Pelvis CT 04/11/24 22:15 IMPRESSION: Small bowel obstruction, possibly secondary to adhesions in the right lower quadrant. Small Bowel X-Ray 04/12/24 16:36 IMPRESSION: 1. Mildly delayed small bowel transit time of 2-3 hours with transition point from minimal to mildly dilated small bowel to relatively decompressed bowel in the right lower quadrant. Findings are consistent with a persistent likely partial small bowel obstruction. Labs Labs: Laboratory Results - last 24 hr 04/13/24 06:17 WBC 9.3 RBC 4.36 L Hgb 12.2 L Hct 39.1 L MCV 89.7 MCH 28.0 MCHC 31.2 L RDW 15.3 H Plt Count 173 MPV 10.0 Immature Gran % (Auto) 0.2 Neut % (Auto) 62.2 Lymph % (Auto) 13.3 L [place] % (Auto) 22.6 H Eos % (Auto) 1.4 Baso % (Auto) 0.3 Lymph # (Auto) 1.24 [place] # (Auto) 2.1 H Eos # (Auto) 0.1 Baso # (Auto) 0.0 Abs Immat Gran (auto) 0.02 Absolute Neuts (auto) 5.8 Absolute Nucleated RBC 0.000 Nucleated RBC % 0.0 Sodium 139 Potassium 3.6 Chloride 111 H Carbon Dioxide 25 Anion Gap 3 L BUN 14 Creatinine 1.00 Estim Creat Clear Calc 61 Estimated GFR > 60 Glucose 105 Calcium 8.0 L Total Bilirubin 1.2 AST 23 ALT 19 Alkaline Phosphatase 82 Total Protein 6.0 L Albumin 3.1 L
[2024-04-13 14:30] VITALS: BP 155/85; PULSE 78; RESP 16; TEMP 36.2; O2SAT 97
--- NOTE | 2024-04-13 15:39 | P.PNIM_ITS ---
Progress Note: A&P Assessment and Plan (1) Small bowel obstruction: Code(s): K56.609 - Unspecified intestinal obstruction, unspecified as to partial versus complete obstruction Status: Acute Assessment and Plan: * NPO * NS@100 ml/hr * Pain control * Zosyn 3.375 gm IVPB q 6 * Surgery following. * Small bowel through as below: IMPRESSION: 1. Mildly delayed small bowel transit time of 2-3 hours with transition point from minimal to mildly dilated small bowel to relatively decompressed bowel in the right lower quadrant. Findings are consistent with a persistent likely partial small bowel obstruction. * Blood cultures no growth to date. * Diet advancement per general surgery, currently on clears. (2) Leukocytosis: Qualifiers: Leukocytosis type: unspecified Qualified Code(s): D72.829 - Elevated white blood cell count, unspecified Code(s): D72.829 - Elevated white blood cell count, unspecified Status: Acute Assessment and Plan: * WBC improving; 20.2>>16.4>>9.3. * Zosyn 3.375 gm IVPB q 6 * Lactic acid normalized; 3.2>> 1.4. 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 * Continue Advair 115-21 mcg 2 puff q 12. (4) CAD in [place] artery: Code(s): I25.10 - Atherosclerotic heart disease of [place] coronary artery without angina pectoris Status: Acute Assessment and Plan: * Atorvastatin 40 mg PO at bedtime. * Lisinopril 10 mg PO daily * Metoprolol Tartrate 50 mg PO q 12. (5) Nausea: Code(s): R11.0 - Nausea Status: Acute Assessment and Plan: * Improving. * Continue Prochlorperazine 10 mg IV q 6 PRN Time Spent With Patient Time: Continue to advance diet as tolerated. Pain and nausea meds PRN. Subjective Date/time seen: 04/13/24 11:39 Patient states he's feeling better and tolerating clear liquid well. States has been ambulating on the hallway and had a BM yesterday. Interval history: Patient calm on bedrest and looks to be in no acute distress. Review of Systems Review of Systems: All systems reviewed & are unremarkable except as noted in HPI and below Exam Narrative: General: Well appearing, no acute distress. HEENT: Atraumatic, PERRL, EOM, moist mucosa. NECK: Supple. Lungs: Clear bilaterally. Heart: RRR, no murmurs. Abdomen: Soft, non-tender, non-distended, +ve bowels X4 quadrants. Extremities: Acyanotic, no edema, 2+ pedal and radial pulses. Skin: Warm and dry. Neuro: Well oriented, CN II-XII grossly intact. Psych: Pleasant and co-operative. Objective Data Vital Signs Vital Signs: Vital Signs - 24 hr 04/12/24 20:02 04/12/24 20:36 04/12/24 21:10 Temperature 98.6 F Pulse Rate 94 88 95 Respiratory Rate 18 16 Blood Pressure 156/70 H Pulse Oximetry 92 04/13/24 05:20 04/13/24 09:47 04/13/24 14:30 Temperature 97.8 F 97.1 F L Pulse Rate 63 81 78 Respiratory Rate 20 18 16 Blood Pressure 139/60 155/85 H Pulse Oximetry 94 97 Intake/Output Intake/Output: Intake & Output 04/10/24 04/11/24 04/12/24 04/13/24 23:59 23:59 23:59 23:59 Intake Total 1000 2150 1280 Output Total 325 Balance 1000 1825 1280 Meds/Results Medications: Active Medications Generic Name Dose Route Start Last Admin Trade Name Freq PRN Reason Stop Dose Admin Atorvastatin Calcium 40 mg 04/12/24 21:00 04/12/24 20:36 Atorvastatin 40 Mg Tablet PO 40 mg QHS SLAVA Administration Dextrose 12.5 gm 04/11/24 23:18 Dextrose 50% 25 Gm/50 Ml Syringe IV PUSH PRN PRN Hypoglycemia Protocol Fluticasone Propionate 1 spray 04/13/24 09:00 04/13/24 08:37 Fluticasone Propionate 0.05% Na Spr 16 Gm Btl (*Bkc) NASAL 1 spray DAILY SLAVA Administration Glucagon 1 mg 04/11/24 23:18 Glucagon For Inj 1 Mg Vial IM PRN PRN Hypoglycemia Protocol Glucose 15 gm 04/11/24 23:18 Glucose Oral Gel 15 Gm Of Glucse In 37.5 Gm Tube PO PRN PRN Hypoglycemia Protocol Piperacillin/Tazobactam/Dextrose 3.375 gm in 50 mls @ 100 mls/hr 04/12/24 06:00 04/13/24 11:26 Zosyn 3.375 Gm/Ns 50 Ml IVPB 100 mls/hr Q6H SLAVA Administration Sodium Chloride 1,000 mls @ 50 mls/hr 04/11/24 23:20 04/13/24 11:26 Normal Saline Iv IV CONT 100 mls/hr .Q20H SLAVA Administration Dextrose 1,000 mls @ 100 mls/hr 04/11/24 23:18 Dextrose 5% 1,000 Ml IVPB PRN PRN Hypoglycemia Protocol Lisinopril 10 mg 04/13/24 09:00 04/13/24 08:36 Lisinopril 10 Mg Tablet PO 10 mg DAILY SLAVA Administration Loratadine 10 mg 04/12/24 10:49 Loratadine 10 Mg Tablet PO DAILY PRN ALLERGIES Melatonin 10 mg 04/12/24 16:40 04/13/24 01:59 Melatonin 5 Mg Tablet PO 10 mg HS PRN Administration Sleep Metoprolol Tartrate 50 mg 04/12/24 21:00 04/13/24 08:37 Metoprolol Tartrate 50 Mg Tab PO 50 mg Q12HR SLAVA Administration Morphine Sulfate 4 mg 04/11/24 23:18 04/12/24 18:56 Morphine Sulfate (*Crx) 4 Mg/Ml Inj IV PUSH 4 mg Q2H PRN Administration Pain Rated 7-10 Ondansetron HCl 4 mg 04/11/24 23:18 04/12/24 18:56 Ondansetron Inj 4 Mg/2 Ml Vial IV PUSH 4 mg Q4H PRN Administration Nausea Pantoprazole Sodium 40 mg 04/13/24 09:00 04/13/24 08:37 Pantoprazole 40 Mg Tablet PO 40 mg QAM SLAVA Administration Fluticasone/Salmeterol 2 puff 04/12/24 20:00 04/13/24 09:31 Fluticasone/Salmeterol 115-21 Mcg Inhaler 1 Puff INHALATION 2 puff Q12HRT SLAVA Administration Vitamin D 2,000 units 04/13/24 09:00 04/13/24 08:37 Cholecalciferol 1,000 Units Tablet PO 2,000 units DAILY SLAVA Administration Radiology Results: ITS Impressions Abdomen/Pelvis CT 04/11/24 22:15 IMPRESSION: Small bowel obstruction, possibly secondary to adhesions in the right lower quadrant. Small Bowel X-Ray 04/12/24 16:36 IMPRESSION: 1. Mildly delayed small bowel transit time of 2-3 hours with transition point from minimal to mildly dilated small bowel to relatively decompressed bowel in the right lower quadrant. Findings are consistent with a persistent likely partial small bowel obstruction. Labs Labs: Laboratory Results - last 24 hr 04/13/24 06:17 WBC 9.3 RBC 4.36 L Hgb 12.2 L Hct 39.1 L MCV 89.7 MCH 28.0 MCHC 31.2 L RDW 15.3 H Plt Count 173 MPV 10.0 Immature Gran % (Auto) 0.2 Neut % (Auto) 62.2 Lymph % (Auto) 13.3 L [place] % (Auto) 22.6 H Eos % (Auto) 1.4 Baso % (Auto) 0.3 Lymph # (Auto) 1.24 [place] # (Auto) 2.1 H Eos # (Auto) 0.1 Baso # (Auto) 0.0 Abs Immat Gran (auto) 0.02 Absolute Neuts (auto) 5.8 Absolute Nucleated RBC 0.000 Nucleated RBC % 0.0 Sodium 139 Potassium 3.6 Chloride 111 H Carbon Dioxide 25 Anion Gap 3 L BUN 14 Creatinine 1.00 Estim Creat Clear Calc 61 Estimated GFR > 60 Glucose 105 Calcium 8.0 L Total Bilirubin 1.2 AST 23 ALT 19 Alkaline Phosphatase 82 Total Protein 6.0 L Albumin 3.1 L Quality VTE Prophylaxis VTE prophylaxis: mechanical ordered Hospitalist [facility] Advance Care Plan I have confirmed that the patient's Advanced Care Plan is present, code status is documented, or surrogate decision maker is listed in patient medical record.: Yes Medication Reconciliation I have utilized all available resources to obtain, update and review the patients current medications (includes all prescriptions, OTC, herbals, cannabis, and nutritional supplements).: Yes
[2024-04-13 20:08] VITALS: PULSE 84; RESP 18
[2024-04-13 21:20] VITALS: BP 150/63; PULSE 68; RESP 18; TEMP 36.4; O2SAT 97
[2024-04-13 21:25] VITALS: PULSE 80
[2024-04-13] MEDS: ALPRAZolam (*CRX) 0.5 MG TABLET 1 MG PO (21:25)
[2024-04-13] MEDS: ATORVASTATIN 40 MG TABLET PO (21:26)
[2024-04-14] MEDS: PIPERACILLN/TAZ 3.375GM/NS50ML 3.375 GM/50 ML BAG IVPB ×3 (00:10→11:48)
[2024-04-14 05:54] VITALS: BP 134/51; PULSE 61; RESP 18; TEMP 36.6; O2SAT 96
[2024-04-14 07:37] LABS: Basophils Absolute Auto 0.1 K/mm3 (0.0-0.1); Basophils Percent Auto 0.6 % (0.2-1.2); Eosinophils Absolute Auto 0.3 K/mm3 (0-0.3); Eosinophils Percent Auto 2.9 % (0-4.4); Hemoglobin 11.5 g/dL (14.0-18.0); Immature Granulocyte Absolute 0.04 K/mm3 (0.00-0.031); Immature Granulocyte Percent A 0.4 % (0-0.5); Lymphocytes Absolute Auto 1.34 K/mm3 (0.9-3.2); Lymphocytes Percent Auto 13.5 % (18.3-44.2); Mean Corpuscular HGB Conc 31.1 g/dl (32-36); Mean Corpuscular Hemoglobin 27.6 pg (26-34); Mean Corpuscular Volume 88.7 fl (80-100); Monocytes Absolute Auto 1.7 K/mm3 (0.1-0.6); Monocytes Percent Auto 17.1 % (2.6-8.5); Neutrophils Absolute Auto 6.5 K/mm3 (1.3-6.7); Neutrophils Percent Auto 65.5 % (45.5-73.1); Platelet Count Result 160 k/mm3 (150-375); Red Blood Count 4.17 M/mm3 (4.6-6.20); Red Cell Distribution Width 15.1 % (11.5-14.5)
[2024-04-14] MEDS: FLUTICASONE/SALMETEROL 115-21 MCG INHALER 1 PUFF 2 PUFF INHALATION (07:50)
[2024-04-14 07:51] LABS: Alanine Aminotransferase 17 U/L (6-50); Albumin Level 3.1 g/dL (3.5-5.1); Alkaline Phosphatase 72 U/L (38-126); Anion Gap 4 mmol/L (4-12); Aspartate Amino Transferase 29 U/L (17-59); Blood Urea Nitrogen 11 mg/dL (9-20); Calcium 8.3 mg/dL (8.4-10.2); Carbon Dioxide 25 mmol/L (22-30); Chloride 109 mmol/L (98-107); Estimated CRCL calculation 67 ml/min; Estimated Glomerular Filt Rate > 60; Glucose 94 mg/dL (65-110); Potassium 3.3 mmol/L (3.4-5.0); Sodium 138 mmol/L (137-145)
[2024-04-14] MEDS: FLUTICASONE PROPIONATE 0.05% NA SPR 16 GM BTL (*BKC) 1 SPRAY NASAL (09:09)
[2024-04-14] MEDS: PANTOPRAZOLE 40 MG TABLET PO (09:10)
[2024-04-14] MEDS: lisinopriL 10 MG TABLET PO (09:10)
[2024-04-14] MEDS: METOPROLOL TARTRATE 50 MG TAB PO (09:10)
[2024-04-14] MEDS: CHOLECALCIFEROL 1,000 UNITS TABLET 2000 UNITS PO (09:10)
--- NOTE | 2024-04-14 10:22 | PM.PNGS ---
Progress Note: A&P Assessment and Plan (1) Small bowel obstruction: Code(s): K56.609 - Unspecified intestinal obstruction, unspecified as to partial versus complete obstruction Status: Acute Assessment and Plan: resolved, ADAT, encourage OOB, no acute surgical issues, will s/o, call c ?s, issues Subjective Subjective Date/Time Seen: 04/14/24 10:22 Interval history: feels good, no futher abd pain, N/V, chastity full liquids, +bowel fxn Review of Systems Review of Systems: All systems reviewed & are unremarkable except as noted in HPI and below Exam Const: General: cooperative, comfortable and no acute distress Resp: Auscultation: clear to auscultation bilaterally Cardio: Rate: regular rate Rhythm: regular rhythm GI: Inspection: normal to inspection and non-distended GI Palp: No abdominal tenderness, Yes Soft to palpation, No Tenderness to palpation present (GI), No Guarding due to palpation present (GI) and No Rigid due to palpation Objective Data Vital Signs Vital Signs: Vital Signs - 24 hr 04/13/24 14:30 04/13/24 20:08 04/13/24 21:20 Temperature 36.2 C L 36.4 C Pulse Rate 78 84 68 Respiratory Rate 16 18 18 Blood Pressure 155/85 H 150/63 H Pulse Oximetry 97 97 Oxygen Delivery 04/13/24 21:25 04/14/24 05:54 04/14/24 08:00 Temperature 36.6 C Pulse Rate 80 61 Respiratory Rate 18 Blood Pressure 134/51 L Pulse Oximetry 96 Oxygen Delivery Room Air Intake/Output Intake/Output: Intake & Output 04/11/24 04/12/24 04/13/24 04/14/24 23:59 23:59 23:59 23:59 Intake Total 1000 2150 1860 200 Output Total 325 Balance 1000 1825 1860 200 Meds/Results Medications: Active Medications Generic Name Dose Route Start Last Admin Trade Name Freq PRN Reason Stop Dose Admin Alprazolam 1 mg 04/13/24 17:47 04/13/24 21:25 Alprazolam (*Crx) 0.5 Mg Tablet PO 1 mg QHS PRN Administration Anxiety Atorvastatin Calcium 40 mg 04/12/24 21:00 04/13/24 21:26 Atorvastatin 40 Mg Tablet PO 40 mg QHS SLAVA Administration Dextrose 12.5 gm 04/11/24 23:18 Dextrose 50% 25 Gm/50 Ml Syringe IV PUSH PRN PRN Hypoglycemia Protocol Fluticasone Propionate 1 spray 04/13/24 09:00 04/14/24 09:09 Fluticasone Propionate 0.05% Na Spr 16 Gm Btl (*Bkc) NASAL 1 spray DAILY SLAVA Administration Glucagon 1 mg 04/11/24 23:18 Glucagon For Inj 1 Mg Vial IM PRN PRN Hypoglycemia Protocol Glucose 15 gm 04/11/24 23:18 Glucose Oral Gel 15 Gm Of Glucse In 37.5 Gm Tube PO PRN PRN Hypoglycemia Protocol Piperacillin/Tazobactam/Dextrose 3.375 gm in 50 mls @ 100 mls/hr 04/12/24 06:00 04/14/24 05:47 Zosyn 3.375 Gm/Ns 50 Ml IVPB Infused Q6H SLAVA Infusion Dextrose 1,000 mls @ 100 mls/hr 04/11/24 23:18 Dextrose 5% 1,000 Ml IVPB PRN PRN Hypoglycemia Protocol Lisinopril 10 mg 04/13/24 09:00 04/14/24 09:10 Lisinopril 10 Mg Tablet PO 10 mg DAILY SLAVA Administration Loratadine 10 mg 04/12/24 10:49 Loratadine 10 Mg Tablet PO DAILY PRN ALLERGIES Melatonin 10 mg 04/12/24 16:40 04/13/24 21:26 Melatonin 5 Mg Tablet PO 10 mg HS PRN Administration Sleep Metoprolol Tartrate 50 mg 04/12/24 21:00 04/14/24 09:10 Metoprolol Tartrate 50 Mg Tab PO 50 mg Q12HR SLAVA Administration Morphine Sulfate 4 mg 04/11/24 23:18 04/12/24 18:56 Morphine Sulfate (*Crx) 4 Mg/Ml Inj IV PUSH 4 mg Q2H PRN Administration Pain Rated 7-10 Ondansetron HCl 4 mg 04/11/24 23:18 04/12/24 18:56 Ondansetron Inj 4 Mg/2 Ml Vial IV PUSH 4 mg Q4H PRN Administration Nausea Pantoprazole Sodium 40 mg 04/13/24 09:00 04/14/24 09:10 Pantoprazole 40 Mg Tablet PO 40 mg QAM SLAVA Administration Fluticasone/Salmeterol 2 puff 04/12/24 20:00 04/14/24 07:50 Fluticasone/Salmeterol 115-21 Mcg Inhaler 1 Puff INHALATION 2 puff Q12HRT SLAVA Administration Vitamin D 2,000 units 04/13/24 09:00 04/14/24 09:10 Cholecalciferol 1,000 Units Tablet PO 2,000 units DAILY SLAVA Administration Radiology Results: ITS Impressions Abdomen/Pelvis CT 04/11/24 22:15 IMPRESSION: Small bowel obstruction, possibly secondary to adhesions in the right lower quadrant. Small Bowel X-Ray 04/12/24 16:36 IMPRESSION: 1. Mildly delayed small bowel transit time of 2-3 hours with transition point from minimal to mildly dilated small bowel to relatively decompressed bowel in the right lower quadrant. Findings are consistent with a persistent likely partial small bowel obstruction. Labs Labs: Laboratory Results - last 24 hr 04/14/24 07:21 WBC 10.0 RBC 4.17 L Hgb 11.5 L Hct 37.0 L MCV 88.7 MCH 27.6 MCHC 31.1 L RDW 15.1 H Plt Count 160 MPV 10.0 Immature Gran % (Auto) 0.4 Neut % (Auto) 65.5 Lymph % (Auto) 13.5 L [place] % (Auto) 17.1 H Eos % (Auto) 2.9 Baso % (Auto) 0.6 Lymph # (Auto) 1.34 [place] # (Auto) 1.7 H Eos # (Auto) 0.3 Baso # (Auto) 0.1 Abs Immat Gran (auto) 0.04 H Absolute Neuts (auto) 6.5 Absolute Nucleated RBC 0.000 Nucleated RBC % 0.0 Sodium 138 Potassium 3.3 L Chloride 109 H Carbon Dioxide 25 Anion Gap 4 BUN 11 Creatinine 0.90 Estim Creat Clear Calc 67 Estimated GFR > 60 Glucose 94 Calcium 8.3 L Total Bilirubin 1.0 AST 29 ALT 17 Alkaline Phosphatase 72 Total Protein 6.0 L Albumin 3.1 L
[2024-04-14 14:00] VITALS: BP 129/59; PULSE 56; RESP 16; TEMP 36.7; O2SAT 96
--- NOTE | 2024-04-14 14:44 | P.DS_ITS ---
DS: Admitting Diagnosis Discharge Date 04/14/24 Admitting Diagnosis Abdominal Pain DS: Discharge Diagnosis Discharge Diagnosis (1) Small bowel obstruction: Code(s): K56.609 - Unspecified intestinal obstruction, unspecified as to partial versus complete obstruction Status: Acute Assessment and Plan: * Currently tolerating low-fiber diet with no GI distress. * Pain well controlled * Pt does not require antibiotics, Zosyn discontinued. * Surgery signed off. * Small bowel through as below: IMPRESSION: 1. Mildly delayed small bowel transit time of 2-3 hours with transition point from minimal to mildly dilated small bowel to relatively decompressed bowel in the right lower quadrant. Findings are consistent with a persistent likely partial small bowel obstruction. * Blood cultures no growth to date. (2) Leukocytosis: Qualifiers: Leukocytosis type: unspecified Qualified Code(s): D72.829 - Elevated white blood cell count, unspecified Code(s): D72.829 - Elevated white blood cell count, unspecified Status: Acute Assessment and Plan: * WBC improving; 20.2>>16.4>>9.3>>10. * No signs or source of infection. * Lactic acid normalized; 3.2>> 1.4. * Antibiotics discontinued. 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 * Continue Advair 115-21 mcg 2 puff q 12. (4) CAD in [place] artery: Code(s): I25.10 - Atherosclerotic heart disease of [place] coronary artery without angina pectoris Status: Acute Assessment and Plan: * Atorvastatin 40 mg PO at bedtime. * Lisinopril 10 mg PO daily * Metoprolol Tartrate 50 mg PO q 12. (5) Nausea: Code(s): R11.0 - Nausea Status: Acute Assessment and Plan: * Resolved. * Denies symptoms. Plan Discharge Home. DS: Summary Hospital Course Reason for hospitalization: Small Bowel Obstruction. Hospital Course: Patient presented to the ER with right sided abdominal pain that started the day before he presented. He began having nausea and vomiting, increased belching. Patient has history of several previous small-bowel obstructions thought to be related to previous abdominal surgeries. CT abdomen/pelvis was consistent with small bowel obstruction, and pt was admitted for stabilization. He was initially NPO and diet was gradually resumed with improving bowel function. He was seen by general surgery and conservative mgt was recommended, with no surgical intervention. Pt has had a couple of bowel movements, including today, and has been able to tolerated low fiber diet with no GI distress. He reports he's almost back to his baseline and wants to be discharged today. Pt is medically stable for discharge with no acute distress noted or reported prior to discharge. Status at Discharge Functional status at discharge: independent ambulation Overall status at discharge: patient is progressing back to baseline Time Spent with Patient Time attestation: Total time spent providing and/or coordinating discharge services: Time spent: Greater than 30 minutes Exam Narrative: General: Well appearing, no acute distress. HEENT: Atraumatic, PERRL, EOM, moist mucosa. NECK: Supple. Lungs: Clear bilaterally. Heart: RRR, no murmurs. Abdomen: Soft, non-tender, non-distended, +ve bowels X4 quadrants. Extremities: Acyanotic, no edema, 2+ pedal and radial pulses. Skin: Warm and dry. Neuro: Well oriented, CN II-XII grossly intact. Psych: Pleasant and co-operative. DS: Data Data Completed and Pending Labs on day of discharge: Labs from last 24 hours 04/14/24 07:21 WBC 10.0 RBC 4.17 L Hgb 11.5 L Hct 37.0 L MCV 88.7 MCH 27.6 MCHC 31.1 L RDW 15.1 H Plt Count 160 MPV 10.0 Immature Gran % (Auto) 0.4 Neut % (Auto) 65.5 Lymph % (Auto) 13.5 L [place] % (Auto) 17.1 H Eos % (Auto) 2.9 Baso % (Auto) 0.6 Lymph # (Auto) 1.34 [place] # (Auto) 1.7 H Eos # (Auto) 0.3 Baso # (Auto) 0.1 Abs Immat Gran (auto) 0.04 H Absolute Neuts (auto) 6.5 Absolute Nucleated RBC 0.000 Nucleated RBC % 0.0 Sodium 138 Potassium 3.3 L Chloride 109 H Carbon Dioxide 25 Anion Gap 4 BUN 11 Creatinine 0.90 Estim Creat Clear Calc 67 Estimated GFR > 60 Glucose 94 Calcium 8.3 L Total Bilirubin 1.0 AST 29 ALT 17 Alkaline Phosphatase 72 Total Protein 6.0 L Albumin 3.1 L Preliminary micro results at discharge 04/11/24 23:49 Blood Culture - Preliminary Blood 04/11/24 23:49 Blood Culture - Preliminary Blood Discharge Plan Discharge Attending physician on discharge: Sam Kimball Consulting providers: Carolee Terry Discharging Clinician: Sandy Goss Anticipated Discharge Date/Time: 04/14/24 14:58 Patient Disposition: Home, Self-Care Activity: as tolerated Diet: heart healthy and low fiber Patient Instructions: Antibiotic Form, Aspirin (By mouth), Pain Management (DC) Patient Language: [place] Stand Alone Forms: General Discharge Information Follow-up/Referrals: Madhuri Torres MD [Primary Care Provider] - 1 Week Discharge Medications: Continued metoprolol tartrate 50 mg tablet 50 mg PO BID cholecalciferol (vitamin D3) 50 mcg (2,000 unit) tablet 50 mcg PO DAILY cetirizine [Zyrtec] 10 mg tablet 10 mg PO DAILY PRN (Reason: Allergies) aspirin 81 mg Tablet,Delayed Release (Dr/Ec) 81 mg PO DAILY fluticasone propionate [Flonase Allergy Relief] 50 mcg/actuation [place],Suspension 1 spray INTRANASAL DAILY lisinopril 10 mg Tablet 10 mg PO DAILY melatonin 2.5 mg Tablet,Chewable 10 mg PO HS PRN (Reason: Sleep) fluticasone furoate-vilanterol [Breo Ellipta] 100-25 mcg/dose blister with device 1 inh inhalation DAILY Qty: 180 1RF atorvastatin 40 mg tablet 40 mg PO QHS Qty: 90 2RF pregabalin 100 mg capsule 100 mg PO BID-TID PRN (Reason: post herpetic neuralgia) Qty: 270 1RF omeprazole 20 mg capsule,delayed release(DR/EC) 20 mg PO DAILY Qty: 90 1RF alprazolam 1 mg tablet 1 mg PO DAILY PRN (Reason: anxiety) Qty: 90 1RF tramadol 50 mg tablet 50 mg PO BID PRN (Reason: pain) Qty: 60 0RF Date of admission: 04/11/24 23:20 Primary Care Provider: Madhuri Torres Admitting Provider: Leticia Jarrett Attending physician on admission: Leticia Jarrett Condition: Stable Quality If No VTE Prophylaxis Answer both mechanical and pharmacologic: Reason no mechanical VTE proph: low risk/not indicated Reason no pharmacologic proph: low risk/not indicated Hospitalist MIPS Heart Failure (Exclusion) Patient has history of Heart Transplant or Left Ventricular Assistive Device?: No IF YES, STOP HERE Heart Failure (Qualifier) Patient has current or prior documentation of LVEF less than or equal to 40%, or mod/servere depressed LVSF?: No IF NO, STOP HERE
== END 2024-04-14 15:35 | disposition home or self-care (01) | DRG 390 ==
LOC: ANHED 22:46 → ANH3MEDSUR 23:48
PROVIDERS: Nurse Practitioner Family; Student in an Organized Health Care Education/Training Program; Admitting Provider Internal Medicine; Emergency Provider Physician Assistant; PCP Family Medicine; Visit Provider Nurse Practitioner Adult Health
DX: K56.609 Unspecified intestinal obstruction, unspecified as to partial versus complete obstruction (principal); D72.829 Elevated white blood cell count, unspecified; E55.9 Vitamin D deficiency, unspecified; E78.5 Hyperlipidemia, unspecified; I25.10 Atherosclerotic heart disease of native coronary artery without angina pectoris; I10 Essential (primary) hypertension; J44.9 Chronic obstructive pulmonary disease, unspecified; K21.9 Gastro-esophageal reflux disease without esophagitis; K58.9 Irritable bowel syndrome, unspecified; Z85.47 Personal history of malignant neoplasm of testis; Z95.1 Presence of aortocoronary bypass graft; Z87.891 Personal history of nicotine dependence; Z90.49 Acquired absence of other specified parts of digestive tract; Z79.82 Long term (current) use of aspirin; Z28.21 Immunization not carried out because of patient refusal
CPT/HCPCS: 36415; 74177; 74250; 80053; 81001; 83605; 83690; 83735; 85025; 87040; 94640; 96361; 96374; 99285; A9270; J2270; J2405; J2543; J7030; Q9967

== ENCOUNTER 2025-04-25 14:16 | Outpatient (CLI) | payer MEDICARE, SELFPAY ==
--- OUTSIDE RECORDS SUMMARY | 2025-04-25 14:19 | XMS_ITS | Clinical Summary ---
Author Organization [facility] [place] [address] Address [address] [place] [address] Care Team Providers Care Academic Affairs Manager Name Role Phone Rahul Torres MD Primary Care Provider Tobi Sahu MD Unavailable Joe Perez MD Unavailable [phone] Allergies Active Allergy Reactions Criticality Noted Date Comments Carbamazepine Unknown 09/20/2021 Naproxen Unknown 09/20/2021 Medications aspirin (ASPIR-81) 81 mg tablet take 1 Tablet by oral route every day 0 0 05/10/19 16 Active fluticasone (FLONASE) 50 mcg/actuation nasal spray Administer 1 spray into each nostril daily Active fluticasone-pennie nterol (BREO ELLIPTA) 100-25 mcg/dose diskus inhaler Inhale 1 puff daily Rinse mouth with water after use to reduce aftertaste and incidence of candidiasis. Do not swallow. Active ALPRAZolam (XANAX) 1 mg tablet TAKE 1 TABLET BY MOUTH DAILY NEEDED FOR ANXIETY 09/07/19 21 Active omeprazole (PriLOSEC) 20 mg capsule Take by mouth 10/27/19 21 Active pregabalin (LYRICA) 100 mg capsule TAKE 1 CAPSULE BY MOUTH 2 TO 3 TIMES DAILY NEEDED FOR SHINGLES PAIN 02/19/20 21 Active albuterol (PROAIR RESPICLICK) 90 mcg/actuation inhaler Inhale 2 puffs every 6 (six) hours as needed for wheezing Active traMADoL (ULTRAM) 50 mg tablet Take 1 tablet (50 mg total) by mouth 2 (two) times a day as needed for pain 09/24/19 23 Active cholecalciferol (VITAMIN D-3) 2000 unit tablet Act grabiel cetirizine 10 mg capsule Take by mouth Active lisinopriL (PRINIVIL,ZESTRI L) 10 mg tabletIndication s:Essential hypertension TAKE 1 TABLET(10 MG) BY MOUTH DAILY 90 tablet 3 07/27/19 25 Active atorvastatin (LIPITOR) 20 mg tablet TAKE 1 TABLET BY MOUTH EVERY DAY 90 tablet 1 07/28/19 25 Active metoprolol tartrate (LOPRESSOR) 50 mg immediate release tablet TAKE 1 TABLET BY MOUTH TWICE DAILY 180 tablet 04/24/20 25 Active metoprolol tartrate (LOPRESSOR) 50 mg immediate release tablet TAKE 1 TABLET BY MOUTH TWICE DAILY 180 tablet 02/23/20 25 025 Discontinued Active Problems Problem Noted Date Diagnosed Date 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 Trials of escalating gabapentin and subsequently pregabalin have provided no relief. In lieu of both gabapentin and pregabalin, place him on a trial of carbamazepine 100 mg t.i.d.. Potential side effects versus benefit were discussed with patient prior to initiating therapy. I will see him back in the office in 3 months time for reassessment on carbamazepine. 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 Cardiogenic shock 05/13/2019 Coronary artery disease invo [place]ving [place] coronary artery of [place] heart without angina pectoris 01/08/2017 Unstable angina Dyslipidemia SBO (small bowel obstruction) VT (ventricular tachycardia) On intra-aortic balloon pump assist HTN (hypertension), benign Surgical History Surgery Date Site/Laterality Comments OTHER SURGICAL HISTORY Bypass surgery TESTICLE SURGERY Medical History Medical History Date Comments Arthritis COPD (chronic obstructive pulmonary disease) Coronary artery disease Cancer (HCC) HTN (hypertension), benign Family History Medical History Relation Name Comments Heart disease Father Lung disease Father Stroke Father Stroke; Cancer Mother Heart disease Mother Heart disease; Cause of : Heart disease Heart failure Mother No Known Problems Sister Relation Name Status Comments Father (Age 73) Mother (Age 73) Sister Alive Social History Tobacco Use Types Packs/Day Years Used Date Smoking Tobacco: Former Cigarettes Q uit: 01/08/2014 Smokeless Tobacco: Never Tobacco Cessation:Counseling Given: Not Answered Alcohol Use Standard Drinks/Week Comments Not Currently 0 (1 standard drink = 0.6 oz pur e alcohol) AUDIT-C Answer Date Recorded Frequency of Alcohol Consumption Never 05/14/2019 Average Number of Drinks Not on file 020 Frequency of Binge Drinking Not on file 05/04 Sex and Gender Information Value Date Recorded Sex Assigned at Not on file Legal Sex Male 3:55 AM CALLIOPE PLAYER Gender Identity Not on file Sexual Orientation Not on file Last Filed Vital Signs Vital Sign Reading Time Taken Comments Blood Pressure 110/80 06/30/2024 8:45 AM CALLIOPE PLAYER Pulse 56 06/30/2024 8:45 AM CALLIOPE PLAYER Temperature 36.6 C (97.8 F) 11/14/2020 11:31 AM CDT Respiratory Rate 14 06/23/2019 12:14 PM CALLIOPE PLAYER Oxygen Saturation 92% 06/30/2024 8:45 AM CALLIOPE PLAYER Inhaled Oxygen Concentration - - Weight 90.3 kg (199 lb 1.6 oz) 06/30/2024 8:45 A M CALLIOPE PLAYER Height 175.3 cm (5' 9) 06/30/2024 8:45 AM CALLIOPE PLAYER Body Mass Index 29.4 06/30/2024 8:45 AM CALLIOPE PLAYER Plan of Treatment Health Maintenance Due Date Last Done Comments Depression Screening 1946 Fall Risk Assessment 1945 Hepatitis C Screening 1946 Hepatitis B Screening 1964 Pneumococcal vaccine 65+ (1 of 1 - PCV) 1996 Zoster Vaccine (1 of 2) 1996 Abdominal Aortic Aneurysm (AAA) Screen 11/26/2011 Well Visit 65+ 11/26/2011 Influenza Vaccine (#1) 2025 DTaP/Tdap/Td Vaccine (2 - Td or Tdap) 11/22/2029 Medical Devices Explanted Type Area Wire Weaving Loom Setter Device Identifier Shelf Expiration Date Model / Serial / Lot Medtronic Card Vasc Surgery [id number] [place] 1.5mm 14mm Radiopaque Bulb Tapered Tip Soft - [id number] Explanted:Qty: 1 on 05/16/2019 at [facility] Shunt N/A: Heart [employer] 03/03/2022 [id number] / / Insurance UHC MEDICARE ADVANTAGE [place] [facility] MEDIC[facility] ADVANTAGE Advance Directives For more information, please contact: [phone] * Full Code (Latest Code Status on File) Date Activated Date Inactivated Comments 05/16/2019 3:03 PM 05/23/2019 8:34 PM * Full Code Date Activated Date Inactivated Comments 05/13/2019 8:39 PM 05/16/2019 3:02 PM Care Teams Academic Affairs Manager Relationship Specialty Start Date End Date Rahul Torres MD PCP - General Family Practice 07/28/17 Tobi Sahu MD [address] [place] [address] Consulting Physician Cardiothoracic Surgery 05/23/19 Joe Perez MD [address] [place] [address] Consulting Physician Cardiology 05/23/19
--- OUTSIDE RECORDS SUMMARY | 2025-04-25 14:19 | XMS_ITS | Encounter Summary ---
Author Organization [facility] Address [address] [place] [address] Care Team Providers Care Compressor Station Engineer Name Role Phone Unavailable Primary Care Provider Unavailabl e Encounter Details Date Type Department Care Team (Late st Contact Info) Description 11/27/2022 Lab Requisition [facility] - DermPath Lab [address] [place] [id number] Abdirizak Ayala MD [address] [place] [address] Social History Tobacco Use Types Packs/Day Years Used Date Smoking Tobacco: Never Assessed Sex and Gender Information Value Date Recorded Sex Assigned at Not on file 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 Gender Identity Not on file Sexual Orientation Not on file documented as of this encounter Plan of Treatment Not on file documented as of this encounter Procedures Procedure Name Priority Date/Time Associated Diagnosis Comments DERMATOPATHOLOGY Routine 11/26/2022 12:0 0 AM CDT documented in this encounter Results * DERMATOPATHOLOGY (11/26/2022 12:00 AM CDT) Case Report Dermatopathology Report Case: [id number] Authorizing Provider: Abdirizak Ayala MD Collected: 11/26/2022 12:00 AM Ordering Location: [facility] DermPath Lab Received: 11/27/2022 06:50 AM Pathologist: India Beaver MD Specimen: Skin, left abdomen 11:43 AM CDT DERMATOPATHOLOGY LABORATORY Final Diagnosis Specimen A. SKIN, left abdomen: BASAL CELL CARCINOMA, NODULAR TYPE (C44.519) 11:43 AM CDT DERMATOPATHOLOGY LABORATORY at 1143 CDT Clinical History R/O BCC 3 11:43 AM CDT DERMATOPATHOLOGY LABORATORY Gross Description Specimen A: Received is one formalin filled container labeled with the patient's name and designated left abdomen. The specimen consists of a shave biopsy measuring 12x6x2 mm. Jar 0. 3 11:43 AM CDT DERMATOPATHOLOGY LABORATORY Microscopic Description Specimen A. SKIN, left abdomen: Within the dermis there are aggregates of basaloid cells with a high nuclear to cytoplasmic ratio and peripheral palisading. 3 11:43 AM CDT DERMATOPATHOLOGY LABORATORY Disclaimer An external and internal positive and negative controls are appropriate for the histochemical, immunohistochemical and immunofluorescence stain(s) in this case (if any), except where stated explicitly. The performance characteristics of the stain(s) cited in this report were developed and its performance characteristic determined by the Dermatopathology Laboratory at [facility], directed by Dr. Harvey Oneil. These tests need not be, and therefore are not, approved by the [place] Food and Drug Administration. The tests are used for clinical purposes. Billing Codes Specimen Charges Stain Charges 00837 1 3 11:43 AM CDT DERMATOPATHOLOGY LABORATORY Embedded Images 3 11:43 AM CDT DERMATOPATHOLOGY LABORATORY Pathology/Cytolog y TISSUE SPECIMEN FROM SKIN / Unknown 11/26/2022 11/27/2022 6:50 AM CDT Abdirizak Ayala MD LAB - PATHOLOGY/CYTOLOGY ORDERAB LES Final Result DERMATOPATHOLOGY LABORATORY [facility] - Department of Dermatology [address] [place] [address], [facility] [phone] documented in this encounter Visit Diagnoses Not on filedocumented in this encounter
--- OUTSIDE RECORDS SUMMARY | 2025-04-25 14:19 | XMS_ITS | Encounter Summary ---
Author Organization [facility] Address [address] [place] [address] Care Team Providers Care Transcription Coordinator Name Role Phone Rahul Torres MD Primary Care Provider Tobi Sahu MD Unavailable Joe Perez MD Unavailable [phone] Encounter Details Date Type Department Care Team (Late st Contact Info) Description 05/13/2019 Documentation [facility] ICU [address] [place] [address] Glenda Posey RN Social History Tobacco Use Types Packs/Day Years Used Date Smoking Tobacco: Former Cigarettes Q uit: 01/08/2014 Smokeless Tobacco: Never Alcohol Use Standard Drinks/Week Comments Yes 0 (1 standard drink = 0.6 oz pur e alcohol) AUDIT-C Answer Date Recorded Frequency of Alcohol Consumption Never 05/14/2019 Average Number of Drinks Not on file 020 Frequency of Binge Drinking Not on file 05/04 Sex and Gender Information Value Date Recorded Sex Assigned at Not on file Legal Sex Male 3:55 AM LICENSE ISSUER Gender Identity Not on file Sexual Orientation Not on file documented as of this encounter Plan of Treatment Not on file documented as of this encounter Visit Diagnoses Not on filedocumented in this encounter Care Teams Transcription Coordinator Relationship Specialty Start Date End Date Rahul Torres MD PCP - General Family Practice 07/28/17 Tobi Sahu MD [address] [facility] [address] [place] [address] Consulting Physician Cardiothoracic Surgery 05/23/19 Joe Perez MD [address] [place] [address] Consulting Physician Cardiology 05/23/19 documented as of this encounter
--- OUTSIDE RECORDS SUMMARY | 2025-04-25 14:19 | XMS_ITS | Encounter Summary ---
Author Organization [facility] Address [address] [facility] [place] [address] Care Team Providers Care Clinical Psychology Professor Name Role Phone Unavailable Primary Care Provider Unavailabl e Encounter Details Date Type Department Care Team (Late st Contact Info) Description 04/07/2023 Lab Requisition [facility] - DermPath Lab [address] [place] [phone] Abdirizak Ayala MD [address] [place] [address] Social History Tobacco Use Types Packs/Day Years Used Date Smoking Tobacco: Never Assessed Sex and Gender Information Value Date Recorded Sex Assigned at Not on file Legal Sex Male 11:26 AM FENDER FINISHER Gender Identity Not on file Sexual Orientation Not on file documented as of this encounter Plan of Treatment Not on file documented as of this encounter Procedures Procedure Name Priority Date/Time Associated Diagnosis Comments DERMATOPATHOLOGY Routine 04/07/2023 12:0 0 AM FENDER FINISHER documented in this encounter Results * DERMATOPATHOLOGY (04/07/2023 12:00 AM FENDER FINISHER) Case Report Dermatopathology Report Case: [id number] Authorizing Provider: Abdirizak Ayala MD Collected: 04/07/2023 12:00 AM Ordering Location: [facility] DermPath Lab Received: 04/08/2023 07:03 AM Pathologist: Fabiana Oneil MD Specimen: Skin, right lat upper arm 3 11:50 AM FENDER FINISHER DERMATOPATHOLOGY LABORATORY Final Diagnosis Specimen A. SKIN, right lat upper arm: BASAL CELL CARCINOMA, NODULAR TYPE (C44.612) PRESENT AT MARGIN 3 11:50 AM FENDER FINISHER DERMATOPATHOLOGY LABORATORY at 1150 FENDER FINISHER Clinical History Nodule (R/O BCC). Check Margins. 3 11:50 AM [facility] DERMATOPATHOLOGY LABORATORY Gross Description Specimen A: Received is one formalin filled container labeled with the patient's name and designated right lat upper arm. The specimen consists of a shave biopsy measuring 8x6x1 mm. Jar 0. 11:50 AM [facility] DERMATOPATHOLOGY LABORATORY Microscopic Description Specimen A. SKIN, right lat upper arm: Within the dermis there are aggregates of basaloid cells with a high nuclear to cytoplasmic ratio and peripheral palisading. This lesion is present at the margin of the specimen. 11:50 AM [facility] DERMATOPATHOLOGY LABORATORY Disclaimer An external and internal positive and negative controls are appropriate for the histochemical, immunohistochemical and immunofluorescence stain(s) in this case (if any), except where stated explicitly. The performance characteristics of the stain(s) cited in this report were developed and its performance characteristic determined by the Dermatopathology Laboratory at [facility], directed by Dr. Harvey Oneil. These tests need not be, and therefore are not, approved by the [place] Food and Drug Administration. The tests are used for clinical purposes. Billing Codes Specimen Charges Stain Charges 47714 1 3 11:50 AM [facility] DERMATOPATHOLOGY LABORATORY Embedded Images 11:50 AM [facility] DERMATOPATHOLOGY LABORATORY Pathology/Cytolog y TISSUE SPECIMEN FROM SKIN / Unknown 04/07/2023 04/08/2023 7:03 AM [facility] Abdirizak Ayala MD LAB - PATHOLOGY/CYTOLOGY ORDERAB LES Final Result DERMATOPATHOLOGY LABORATORY [facility] - Department of Dermatology [address] [phone] documented in this encounter Visit Diagnoses Not on filedocumented in this encounter
--- OUTSIDE RECORDS SUMMARY | 2025-04-25 14:19 | XMS_ITS | Encounter Summary ---
Author Organization [facility] Address [address] [place] [address] Care Team Providers Care Television News Photographer Name Role Phone Unavailable Primary Care Provider Unavailabl e Encounter Details Date Type Department Care Team (Late st Contact Info) Description 11/11/2023 Lab Requisition [facility] - DermPath Lab [address] [place] [address] Abdirizak Ayala MD [address] [place] [address] Social History Tobacco Use Types Packs/Day Years Used Date Smoking Tobacco: Never Assessed Sex and Gender Information Value Date Recorded Sex Assigned at Not on file 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 Gender Identity Not on file Sexual Orientation Not on file documented as of this encounter Plan of Treatment Not on file documented as of this encounter Procedures Procedure Name Priority Date/Time Associated Diagnosis Comments DERMATOPATHOLOGY Routine 11/09/2023 12:0 0 AM CDT documented in this encounter Results * DERMATOPATHOLOGY (11/09/2023 12:00 AM CDT) Case Report Dermatopathology Report Case: [id number] Authorizing Provider: Abdirizak Ayala MD Collected: 11/09/2023 12:00 AM Ordering Location: [facility] - Received: 11/11/2023 06:44 AM DermPath Lab Pathologist: India Beaver MD Specimen: Skin, right mid back 4 2:38 PM CDT DERMATOPATHOLOGY LABORATORY Final Diagnosis Specimen A. SKIN, right mid back: BASAL CELL CARCINOMA, NODULAR TYPE (C44.519) 4 2:38 PM CDT DERMATOPATHOLOGY LABORATORY at 1438 CDT Clinical History BCC 4 2:38 PM CDT DERMATOPATHOLOGY LABORATORY Gross Description Specimen A: Received is one formalin filled container labeled with the patient's name and designated right mid back. The specimen consists of a shave biopsy measuring 7x6x2 mm. Jar 0. 4 2:38 PM CDT DERMATOPATHOLOGY LABORATORY Microscopic Description Specimen A. SKIN, right mid back: Within the dermis there are aggregates of basaloid cells with a high nuclear to cytoplasmic ratio and peripheral palisading. 4 2:38 PM CDT DERMATOPATHOLOGY LABORATORY Disclaimer An external and internal positive and negative controls are appropriate for the histochemical, immunohistochemical and immunofluorescence stain(s) in this case (if any), except where stated explicitly. The performance characteristics of the stain(s) cited in this report were developed and its performance characteristic determined by the Dermatopathology Laboratory at [facility], directed by Dr. Harvey Oneil. These tests need not be, and therefore are not, approved by the [place] Food and Drug Administration. The tests are used for clinical purposes. Billing Codes Specimen Charges Stain Charges 29228 1 4 2:38 PM CDT DERMATOPATHOLOGY LABORATORY Embedded Images 4 2:38 PM CDT DERMATOPATHOLOGY LABORATORY Pathology/Cytolog y TISSUE SPECIMEN FROM SKIN / Unknown 11/09/2023 11/11/2023 6:44 AM CDT Abdirizak Ayala MD LAB - PATHOLOGY/CYTOLOGY ORDERAB LES Final Result DERMATOPATHOLOGY LABORATORY [facility] - Department of Dermatology [address] [place] [address], [facility] [phone] documented in this encounter Visit Diagnoses Not on filedocumented in this encounter
--- OUTSIDE RECORDS SUMMARY | 2025-04-25 14:19 | XMS_ITS | Encounter Summary ---
Author Organization [facility] Address [address] [facility] [place] [address] Care Team Providers Care Door And Arrival Attendant Name Role Phone Unavailable Primary Care Provider Unavailabl e Encounter Details Date Type Department Care Team (Late st Contact Info) Description 05/21/2023 Lab Requisition [facility] - DermPath Lab [address] [place] [phone] Abdirizak Ayala MD [address] [place] [address] Social History Tobacco Use Types Packs/Day Years Used Date Smoking Tobacco: Never Assessed Sex and Gender Information Value Date Recorded Sex Assigned at Not on file 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 Sex 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 Gender Identity Not on file Sexual Orientation Not on file documented as of this encounter Plan of Treatment Not on file documented as of this encounter Procedures Procedure Name Priority Date/Time Associated Diagnosis Comments DERMATOPATHOLOGY Routine 05/21/2023 3:33 AM AIR SAW OPERATOR documented in this encounter Results * DERMATOPATHOLOGY (05/21/2023 3:33 AM AIR SAW OPERATOR) Case Report Dermatopathology Report Case: [id number] Authorizing Provider: Abdirizak Ayala MD Collected: 05/21/2023 03:33 AM Ordering Location: [facility] DermPath Lab Received: 05/22/2023 07:22 AM Pathologist: Kristina Hines MD Specimen: Skin, right lat upper arm 11:20 AM AIR SAW OPERATOR DERMATOPATHOLOGY LABORATORY Final Diagnosis Specimen A. SKIN, right lat upper arm: DERMAL SCAR RESIDUAL BASAL CELL CARCINOMA NOT IDENTIFIED (L90.5) 11:20 AM AIR SAW OPERATOR DERMATOPATHOLOGY LABORATORY at 1[address] AIR SAW OPERATOR Clinical History BCC. Check margins. 11:20 AM [facility] DERMATOPATHOLOGY LABORATORY Gross Description Specimen A: Received is one formalin filled container labeled with the patient's name and designated right lat upper arm. The specimen consists of a non-oriented ellipse of skin measuring 77d24l7 mm. The epidermal surface is unremarkable. The margin is inked green. The 12 o'clock and 6 o'clock tips are submitted in cassette 1. The remainder of the ellipse is serially sectioned and submitted in cassette 2-3. Jar 0. 11:20 AM [facility] DERMATOPATHOLOGY LABORATORY Microscopic Description Specimen A. SKIN, right lat upper arm: There are fibroblasts and collagen bundles oriented parallel to the skin surface. There are elongated blood vessels, some of which are oriented perpendicular to the skin surface. No basal cell carcinoma is identified. 11:20 AM [facility] DERMATOPATHOLOGY LABORATORY Disclaimer An external and internal positive and negative controls are appropriate for the histochemical, immunohistochemical and immunofluorescence stain(s) in this case (if any), except where stated explicitly. The performance characteristics of the stain(s) cited in this report were developed and its performance characteristic determined by the Dermatopathology Laboratory at [facility], directed by Dr. Harvey Oneil. These tests need not be, and therefore are not, approved by the [place] Food and Drug Administration. The tests are used for clinical purposes. Billing Codes Specimen Charges Stain Charges 70971 1 11:20 AM [facility] DERMATOPATHOLOGY LABORATORY Embedded Images 11:20 AM [facility] DERMATOPATHOLOGY LABORATORY Pathology/Cytolo gy TISSUE SPECIMEN FROM SKIN / Unknown 05/21/2023 3:33 AM AIR SAW OPERATOR 05/22/2023 7:22 AM AIR SAW OPERATOR Abdirizak Ayala MD LAB - PATHOLOGY/CYTOLOGY ORDERAB LES Final Result DERMATOPATHOLOGY LABORATORY [facility] - Department of Dermatology [address] [phone] documented in this encounter Visit Diagnoses Not on filedocumented in this encounter
--- OUTSIDE RECORDS SUMMARY | 2025-04-25 14:19 | XMS_ITS | Encounter Summary ---
Author Organization [facility] Address [address] [place] [address] Care Team Providers Care Deputy Court Clerk Name Role Phone Unavailable Primary Care Provider Unavailabl e Encounter Details Date Type Department Care Team (Late st Contact Info) Description 07/21/2022 Lab Requisition [facility] DermPath Lab [address] [place] [address] Abdirizak Ayala MD [address] [place] [address] Social History Tobacco Use Types Packs/Day Years Used Date Smoking Tobacco: Never Assessed Sex and Gender Information Value Date Recorded Sex Assigned at Not on file 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 Gender Identity Not on file Sexual Orientation Not on file documented as of this encounter Plan of Treatment Not on file documented as of this encounter Procedures Procedure Name Priority Date/Time Associated Diagnosis Comments DERMATOPATHOLOGY Routine 07/21/2022 12:0 0 AM CDT documented in this encounter Results * DERMATOPATHOLOGY (07/21/2022 12:00 AM CDT) Case Report Dermatopathology Report Case: [id number] Authorizing Provider: Abdirizak Ayala MD Collected: 07/21/2022 12:00 AM Ordering Location: [facility] DermPath Lab Received: 07/21/2022 02:51 PM Pathologist: Nydia Vergara MD Specimen: Skin, right posterior shoulder 1:03 PM CDT DERMATOPATHOLOGY LABORATORY Final Diagnosis Specimen A. SKIN, right posterior shoulder: BASAL CELL CARCINOMA, NODULAR TYPE (C44.612) CALCINOSIS CUTIS (L94.2) 3 1:03 PM CDT DERMATOPATHOLOGY LABORATORY at 1303 CDT Clinical History R/O BCC 3 1:03 PM CDT DERMATOPATHOLOGY LABORATORY Gross Description Specimen A: Received is one formalin filled container labeled with the patient's name and designated right posterior shoulder. The specimen consists of a shave biopsy measuring [id number]. Jar 0. 3 1:03 PM CDT DERMATOPATHOLOGY LABORATORY Microscopic Description Specimen A. SKIN, right posterior shoulder: Within the dermis there are aggregates of basaloid cells with a high nuclear to cytoplasmic ratio and peripheral palisading. Within the dermis, there are aggregates of homogenous amorphous basophilic material consistent with calcium. 3 1:03 PM CDT DERMATOPATHOLOGY LABORATORY Disclaimer An external and internal positive and negative controls are appropriate for the histochemical, immunohistochemical and immunofluorescence stain(s) in this case (if any), except where stated explicitly. The performance characteristics of the stain(s) cited in this report were developed and its performance characteristic determined by the Dermatopathology Laboratory at [facility], directed by Dr. Harvey Oneil. These tests need not be, and therefore are not, approved by the [place] Food and Drug Administration. The tests are used for clinical purposes. Billing Codes Specimen Charges Stain Charges 16641 1 3 1:03 PM CDT DERMATOPATHOLOGY LABORATORY Embedded Images 3 1:03 PM CDT DERMATOPATHOLOGY LABORATORY Pathology/Cytolog y TISSUE SPECIMEN FROM SKIN / Unknown 07/21/2022 07/21/2022 2:51 PM CDT us Abdirizak Ayala MD LAB - PATHOLOGY/CYTOLOGY ORDERAB LES Final Result DERMATOPATHOLOGY LABORATORY [facility] - Department of Dermatology [address] [place] [address], [facility] [phone] documented in this encounter Visit Diagnoses Not on filedocumented in this encounter
--- OUTSIDE RECORDS SUMMARY | 2025-04-25 14:19 | XMS_ITS | Encounter Summary ---
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 Gender Identity Not on file Sexual Orientation Not on file documented as of this encounter Plan of Treatment Not on file documented as of this encounter Procedures Procedure Name Priority Date/Time Associated Diagnosis Comments DERMATOPATHOLOGY Routine 08/19/2022 12:0 0 AM CDT documented in this encounter Results * DERMATOPATHOLOGY (08/19/2022 12:00 AM CDT) Case Report Dermatopathology Report Case: [id number] Authorizing Provider: Abdirizak Ayala MD Collected: 08/19/2022 12:00 AM Ordering Location: [facility] DermPath Lab Received: 08/20/2022 09:07 AM Pathologist: Kristina Hines MD Specimen: Skin, right post shoulder 2:14 PM CDT DERMATOPATHOLOGY LABORATORY Final Diagnosis Specimen A. SKIN, right post shoulder: DERMAL SCAR, PRESENT AT MARGIN RESIDUAL BASAL CELL CARCINOMA NOT IDENTIFIED (L90.5) 2:14 PM CDT DERMATOPATHOLOGY LABORATORY at 1414 CDT Clinical History BCC Check margins 3 2:14 PM CDT DERMATOPATHOLOGY LABORATORY Gross Description Specimen A: Received is one formalin filled container labeled with the patient's name and designated right post shoulder. The specimen consists of a non-oriented ellipse of skin measuring 24x6x4 mm. The epidermal surface is unremarkable. The margin is inked green. The 12 o'clock and 6 o'clock tips are submitted in cassette 1. The remainder of the ellipse is serially sectioned and submitted in cassette 2-3. Jar 0. 3 2:14 PM CDT DERMATOPATHOLOGY LABORATORY Microscopic Description Specimen A. SKIN, right post shoulder: There are fibroblasts and collagen bundles oriented parallel to the skin surface. There are elongated blood vessels, some of which are oriented perpendicular to the skin surface. No basal cell carcinoma is identified. Scar is present at both lateral margins of the specimen in block 3. 3 2:14 PM CDT DERMATOPATHOLOGY LABORATORY Disclaimer An external and internal positive and negative controls are appropriate for the histochemical, immunohistochemical and immunofluorescence stain(s) in this case (if any), except where stated explicitly. The performance characteristics of the stain(s) cited in this report were developed and its performance characteristic determined by the Dermatopathology Laboratory at [facility], directed by Dr. Harvey Oneil. These tests need not be, and therefore are not, approved by the [place] Food and Drug Administration. The tests are used for clinical purposes. Billing Codes Specimen Charges Stain Charges 71737 1 3 2:14 PM CDT DERMATOPATHOLOGY LABORATORY Embedded Images 3 2:14 PM CDT DERMATOPATHOLOGY LABORATORY Pathology/Cytolog y TISSUE SPECIMEN FROM SKIN / Unknown 08/19/2022 08/20/2022 9:07 AM CDT Abdirizak Ayala MD LAB - PATHOLOGY/CYTOLOGY ORDERAB LES Final Result DERMATOPATHOLOGY LABORATORY [facility] - Department of Dermatology [address] [phone] documented in this encounter Visit Diagnoses Not on filedocumented in this encounter
--- OUTSIDE RECORDS SUMMARY | 2025-04-25 14:19 | XMS_ITS | Clinical Summary ---
Author Organization [facility] Address [address] [place] [address] Care Team Providers Care Shoe Parts Molder Name Role Phone Unavailable Primary Care Provider Unavailabl e Source Comments [facility] [employer],non-owned Affiliates and Associated Physician Practices is amultiple site organization consisting of ambulatory clinics and hospital sitesin [place], [place], [place] and [place]. This disclosure is being madepursuant to the Care Everywhere program and may not contain all information available regarding this patient. 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 Gender Identity Not on file Sexual Orientation Not on file Plan of Treatment Health Maintenance Due Date Last Done Comments HEPATITIS C SCREENING 11/20/1964 DTAP/TDAP/TD VACCINES (1 - Tdap) 1965 PNEUMOCOCCAL VACCINE 50+ (1 of 1 - PCV) 1996 ZOSTER VACCINE (1 of 2) 1996 Respiratory Syncytial Virus (RSV) Vaccine Pt: or over 60 yrs (1 - 1-dose 75+ series) 2021 DEPRESSION SCREENING 05/04/2024 MEDICARE AWV CALENDAR YEAR 2024 COVID-19 VACCINE ( - 2024-2 6 season) 2025 INFLUENZA VACCINE (#1) 2025 HEPATITIS B VACCINE Aged Out No longe r eligible based on patient's age to complete this topic HIB VACCINE Aged Out No longer eligi ble based on patient's age to complete this topic HPV VACCINE Aged Out No longer eligi ble based on patient's age to complete this topic MENINGOCOCCAL (Group B) VACC INE SHARED DECISION-MAKING Aged Out No longer eligibl e based on patient's age to complete this topic MENINGOCOCCAL GROUPS A/C/Y/W VACCINE Aged Out No longer eligible b ased on patient's age to complete this topic Insurance [facility] MANAGED MEDICARE ADV [employer] MANAGED MEDICARE ADV
--- OUTSIDE RECORDS SUMMARY | 2025-04-25 14:19 | XMS_ITS | Encounter Summary ---
Author Organization [facility] Address [address] [place] [address] Care Team Providers Care Engineer Fishing Vessel Name Role Phone Unavailable Primary Care Provider Unavailabl e Encounter Details Date Type Department Care Team (Late st Contact Info) Description 12/07/2023 Lab Requisition [facility] - DermPath Lab [address] [place] [phone] Abdirizak Ayala MD [address] [place] [address] Social History Tobacco Use Types Packs/Day Years Used Date Smoking Tobacco: Never Assessed Sex and Gender Information Value Date Recorded Sex Assigned at Not on file 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 Gender Identity Not on file Sexual Orientation Not on file documented as of this encounter Plan of Treatment Not on file documented as of this encounter Procedures Procedure Name Priority Date/Time Associated Diagnosis Comments DERMATOPATHOLOGY Routine 12/07/2023 3:33 AM CDT documented in this encounter Results * DERMATOPATHOLOGY (12/07/2023 3:33 AM CDT) Case Report Dermatopathology Report Case: [id number] Authorizing Provider: Abdirizak Ayala MD Collected: 12/07/2023 03:33 AM Ordering Location: [facility] - Received: 12/07/2023 02:18 PM DermPath Lab Pathologist: Lyssa Beaver MD Specimen: Skin, right mid back 12:05 PM CDT DERMATOPATHOLOGY LABORATORY Final Diagnosis Specimen A. SKIN, right mid back: DERMAL SCAR RESIDUAL BASAL CELL CARCINOMA NOT IDENTIFIED (L90.5) 12:05 PM CDT DERMATOPATHOLOGY LABORATORY at 1205 CDT Clinical History BX proven BCC Prior biopsy [id number] 4 12:05 PM CDT DERMATOPATHOLOGY LABORATORY Gross Description Specimen A: Received is one formalin filled container labeled with the patient's name and designated right mid back. The specimen consists of a non-oriented ellipse of skin measuring 80s58x6 mm. The epidermal surface is unremarkable. The margin is inked green. The 12 o'clock and 6 o'clock tips are submitted in cassette 1. The remainder of the ellipse is serially sectioned and submitted in cassette 2. Jar 0. 4 12:05 PM CDT DERMATOPATHOLOGY LABORATORY Microscopic Description Specimen A. SKIN, right mid back: There are fibroblasts and collagen bundles oriented parallel to the skin surface. There are elongated blood vessels, some of which are oriented perpendicular to the skin surface. No basal cell carcinoma is identified. 4 12:05 PM CDT DERMATOPATHOLOGY LABORATORY Disclaimer An external and internal positive and negative controls are appropriate for the histochemical, immunohistochemical and immunofluorescence stain(s) in this case (if any), except where stated explicitly. The performance characteristics of the stain(s) cited in this report were developed and its performance characteristic determined by the Dermatopathology Laboratory at [facility], directed by Dr. Harvey Oneil. These tests need not be, and therefore are not, approved by the [place] Food and Drug Administration. The tests are used for clinical purposes. Billing Codes Specimen Charges Stain Charges 28833 1 4 12:05 PM CDT DERMATOPATHOLOGY LABORATORY Embedded Images 4 12:05 PM CDT DERMATOPATHOLOGY LABORATORY Pathology/Cytolo gy TISSUE SPECIMEN FROM SKIN / Unknown 12/07/2023 3:33 AM CDT 12/07/2023 2:18 PM CDT Abdirizak Ayala MD LAB - PATHOLOGY/CYTOLOGY ORDERAB LES Final Result DERMATOPATHOLOGY LABORATORY [facility] - Department of Dermatology [address] [phone] documented in this encounter Visit Diagnoses Not on filedocumented in this encounter
--- OUTSIDE RECORDS SUMMARY | 2025-04-25 14:19 | XMS_ITS | Clinical Summary ---
Author Organization [facility]3] Address [address] [place] [address] Phone Care Team Providers Care Billboard Poster Helper Name Role Phone Rahul Torres MD Primary Care Provider Jasmin Miranda APRN, VAN LOADER Unavailable [phone] Allergies Active Allergy Reactions Criticality Noted Date Comments Carbamazepine Unknown 09/20/2021 Naproxen Unknown 09/20/2021 Medications pregabalin (LYRICA) 100 MG Capsule 3 times daily. 1 2 Active ALPRAZolam (XANAX) 1 MG Tablet 1 2 Active aspirin EC 81 MG Tablet Delayed Response Take 81 mg by mouth daily. Active atorvastatin (LIPITOR) 20 MG Tablet Take 20 mg by mouth daily. Active FLUTICASONE PROPIONATE EX by Apply externally route. Active metoprolol tartrate (LOPRESSOR) 25 MG Tablet Take 25 mg by mouth 2 times daily. Active lisinopril (PRINIVIL, ZESTRIL) 10 MG Tablet Take 10 mg by mouth daily. Active Omeprazole 20 MG Tablet Delayed Response Take by mouth. Activ e Active Problems No known active problems Family History Medical History Relation Name Comments Heart Attack Father Stroke Father Relation Name Status Comments Father Mother Social History Tobacco Use Types Packs/Day Years Used Date Smoking Tobacco: Former Cigarettes 0 Q uit: 05/04/2010 Smokeless Tobacco: Never Alcohol Use Standard Drinks/Week Comments Not Currently 0 (1 standard drink = 0.6 oz pur e alcohol) Sex and Gender Information Value Date Recorded Sex Assigned at Not on file Legal Sex Male 2:20 PM CDT Gender Identity Not on file Sexual Orientation Not on file Last Filed Vital Signs Vital Sign Reading Time Taken Comments Blood Pressure 126/72 12/10/2021 11:24 AM CDT Pulse 60 12/10/2021 11:24 AM CDT Temperature 35.9 C (96.6 F) 12/10/2021 11:24 AM CDT Respiratory Rate 18 12/10/2021 11:24 AM CDT Oxygen Saturation 97% 12/10/2021 11:24 AM CDT Inhaled Oxygen Concentration - - Weight 88.5 kg (195 lb) 12/10/2021 11:24 AM CDT Height 175.3 cm (5' 9) 12/10/2021 11:24 AM CDT Body Mass Index 28.8 12/10/2021 11:24 AM CDT Plan of Treatment Health Maintenance Due Date Last Done Comments Hepatitis C Virus (HCV) Screening 1945 Zoster Immunization (1 of 2) 1996 Pneumococcal Immunization (50+ years) (2 of 2 - PCV20 or PCV21) 04/07/2021 04/07/2020 Respiratory Syncytial Virus (RSV) Immunization (Adult) (1 - 1-dose 75+ series) 2021 Medicare Initial AWV [id number] 05/04/2022 Influenza Immunization (#1) 2025 SARS-COV-2 Immunization ( season) 2025 11/18/2021, 04/18/2021, 07/25/2020, Additional history exists DTaP/Tdap/Td Immunization Discontinued 11/23/2019 TdaP Immunization Completed 11/23/2019 Hepatitis B Immunization Aged Out No longer eligible based on patient's age to complete this topic Human Papillomavirus (HPV) Immunization (No Doses Required) Completed Meningococcal Immunization (ACWY) Aged Out No longer eligible based on patient's age to complete this topic Rotavirus Immunization Aged Out No lo nger eligible based on patient's age to complete this topic [facility] Care Teams Billboard Poster Helper Relationship Specialty Start Date End Date Rahul Torres MD PCP - General Family Medicine 11/25/21 Jasmin Miranda, GREASE PRESS HELPER, VAN LOADER [address] [place] [address] Nurse Practitioner Advanced Practice Nurse 12/10/21
--- OUTSIDE RECORDS SUMMARY | 2025-04-25 14:19 | XMS_ITS | Encounter Summary ---
Author Organization 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 Gender Identity Not on file Sexual Orientation Not on file documented as of this encounter Plan of Treatment Not on file documented as of this encounter Procedures Procedure Name Priority Date/Time Associated Diagnosis Comments DERMATOPATHOLOGY Routine 12/18/2022 12:0 0 AM CDT documented in this encounter Results * DERMATOPATHOLOGY (12/18/2022 12:00 AM CDT) Case Report Dermatopathology Report Case: [id number] Authorizing Provider: Abdirizak Ayala MD Collected: 12/18/2022 12:00 AM Ordering Location: [facility] DermPath Lab Received: 12/19/2022 07:42 AM Pathologist: India Beaver MD Specimen: Skin, left abdomen 3 4:50 PM CDT DERMATOPATHOLOGY LABORATORY Final Diagnosis Specimen A. SKIN, left abdomen: DERMAL SCAR RESIDUAL BASAL CELL CARCINOMA NOT IDENTIFIED (L90.5) 3 4:50 PM CDT DERMATOPATHOLOGY LABORATORY at 1650 CDT Clinical History Nodular BCC. Check Margins. 3 4:50 PM CDT DERMATOPATHOLOGY LABORATORY Gross Description Specimen A: Received is one formalin filled container labeled with the patient's name and designated left abdomen. The specimen consists of a non-oriented ellipse of skin measuring 58o42u4 mm. The epidermal surface is unremarkable. The margin is inked green. The 12 o'clock and 6 o'clock tips are submitted in cassette 1. The remainder of the ellipse is serially sectioned and submitted in cassette 2-3. Jar 0. 3 4:50 PM CDT DERMATOPATHOLOGY LABORATORY Microscopic Description Specimen A. SKIN, left abdomen: There are fibroblasts and collagen bundles oriented parallel to the skin surface. There are elongated blood vessels, some of which are oriented perpendicular to the skin surface. No basal cell carcinoma is identified. 3 4:50 PM CDT DERMATOPATHOLOGY LABORATORY Disclaimer An external and internal positive and negative controls are appropriate for the histochemical, immunohistochemical and immunofluorescence stain(s) in this case (if any), except where stated explicitly. The performance characteristics of the stain(s) cited in this report were developed and its performance characteristic determined by the Dermatopathology Laboratory at [facility], directed by Dr. Harvey Oneil. These tests need not be, and therefore are not, approved by the [place] Food and Drug Administration. The tests are used for clinical purposes. Billing Codes Specimen Charges Stain Charges 94919 1 3 4:50 PM CDT DERMATOPATHOLOGY LABORATORY Embedded Images 3 4:50 PM CDT DERMATOPATHOLOGY LABORATORY Pathology/Cytolog y TISSUE SPECIMEN FROM SKIN / Unknown 12/18/2022 12/19/2022 7:42 AM CDT us Abdirizak Ayala MD LAB - PATHOLOGY/CYTOLOGY ORDERAB LES Final Result DERMATOPATHOLOGY LABORATORY [facility] - Department of Dermatology [address] [phone] documented in this encounter Visit Diagnoses Not on filedocumented in this encounter
[2025-04-25 18:53] LABS: Hemoglobin A1C 5.7 % (<5.7)
== END 2025-04-25 14:17 | disposition home or self-care (01) ==
LOC: ANHGOSHLAB 14:16
PROVIDERS: PCP Family Medicine; Visit Provider Family Medicine
DX: R73.03 Prediabetes (principal); I10 Essential (primary) hypertension
CPT/HCPCS: 36415; 83036